=== PATIENT | male | born 1955 | race Caucasian/White ===

== ENCOUNTER 2020-09-05 10:51 | Inpatient (IN) | payer OTHER ==
[2020-09-05 11:26] LABS: #Basophils 0.1 thou/uL (0.0-0.2); #Eosinphils 0.6 thou/uL (0.0-0.7); #Lymphocytes 1.7 thou/uL (1.20-3.40); #Monocytes 0.8 thou/uL (0.11-0.59); #Neutrophils 5.3 thou/uL (1.40-6.50); %Basophils 0.9 % (0.0-1.0); %Eosinophils 7.4 % (0.0-10.0); %Monocytes 9.2 % (0.0-10.0); %Neutrophils 62.5 % (42.0-75.0); Hemoglobin 15.7 g/dL (14.0-18.0); Mean Corpuscular HGB CONC 34.6 g/dL (32.0-36.0); Mean Corpuscular Hemoglobin 34.1 pg (27.0-31.0); Mean Corpuscular Volume 98.7 fL (78.0-98.0); Mean Platelet Volume 7.5 fL (7.4-10.4); Platelet Count 168 thou/uL (130-400); Red Blood Cell (RBC) Count 4.59 mill/uL (4.70-6.10); White Blood Cell (WBC) Count 8.5 thou/uL (4.8-10.8)
--- NOTE | 2020-09-05 11:48 | RAD ---
EXAM: Chest PA and lateral: HISTORY: Dizziness rib position change, x4 to COMPARISON: None FINDINGS: Heart: Normal cardiac silhouette Aorta: Unremarkable Pulmonary vessels: Normal Costophrenic angles: Costophrenic angles are clear. Lungs: No consolidation or masses. Pneumothorax: No pneumothorax Osseous structures: No osseous abnormalities IMPRESSION: No acute cardiopulmonary process.
[2020-09-05 11:53] LABS: ALT (SGPT) 20 U/L (8-55); AST (SGOT) 21 U/L (5-34); Albumin 3.9 g/dL (3.4-4.8); Alkaline Phosphatase 76 U/L (40-110); Anion Gap 13 mmol/L (10-20); BUN (Urea Nitrogen) 16 mg/dL (8.4-25.7); Bilirubin, Total 0.6 mg/dL (0.2-1.2); Calc. Creatinine Clearance 0 mL/min (70-130); Calcium 9.3 mg/dL (7.8-10.44); Carbon Dioxide 23 mmol/L (23-31); Chloride 99 mmol/L (98-107); Estimated GFR-MDRD Greater than 90; Globulin 3.7 g/dL (2.4-3.5); Glucose 213 mg/dL (80-115); Potassium 4.5 mmol/L (3.5-5.1); Protein, Total 7.6 g/dL (5.8-8.1); Sodium 130 mmol/L (136-145)
[2020-09-05] MEDS ORDERED: Magnesium 2 GM/50 ML BAG (IN WATER) ONE (12:35)
[2020-09-05 13:02] LABS: INR-International Normal Ratio 1.1; PTT 24.2 sec (22.9-36.1); Prothrombin Time 14.3 sec (12.0-14.7)
[2020-09-05] MEDS ORDERED: niCARdipine 20MG In NaCl 20 MG/200 ML BAG ONE (13:24)
--- NOTE | 2020-09-05 13:57 | CT ---
CT OF THE BRAIN WITHOUT CONTRAST: Date: 09/05/2020 INDICATION: History of generalized weakness with multiple falls and dizziness. COMPARISON: None. FINDINGS: There are bilateral subdural hematomas overlying both cerebral convexities, left greater than right. The left measures 3.3 cm and the right measures 1.4 cm. There is yfvk-yv-apwpm midline shift of 8.5 mm. The basilar cisterns remain patent. No definite acute infarct is evident. Septum pellucidum and third ventricle are midline. There is suspected generalized cerebral and cerebellar atrophy. Mastoid air c ells are clear. There is mild mucosal thickening in the maxillary sinuses. No air fluid level is evid ent. IMPRESSION: Bilateral cerebral convexity subdural hematomas, left greater than right, with [id number]-[id number] midline shift of 8.5 mm. Findings called to Dr. Germain at 1303 hours on 09/05/2020. CODE CR. POS:
--- NOTE | 2020-09-05 13:59 | CT ---
CT CERVICAL SPINE WITHOUT CONTRAST: Date: 09/05/2020 INDICATION: History of fall with possible neck injury. COMPARISON: None. FINDINGS: There is some straightening of the normal cervical lordosis. Spinal alignment appears within normal l imits. There is advanced disc degenerative disease at C5-6 through C7-T1. Prominent facet osteoarthri tic change is seen on the left at C2-3 with ankylosis. No acute fracture or subluxation is evident. T here is a partial effusion in the left mastoid air cells. IMPRESSION: 1. No acute fracture or subluxation is evident. 2. Moderate to severe cervical spondylosis. POS: BH
[2020-09-05 14:01] LABS: Alcohol Less than 10 mg/dL (Less than 10); Magnesium 1.8 mg/dL (1.6-2.6); Phosphorus 3.4 mg/dL (2.3-4.7)
[2020-09-05] MEDS ORDERED: hydrALAZINE 20 MG/ML VIAL SLOW IVP PRN (14:48)
[2020-09-05] MEDS ORDERED: Dextrose 50% Abboject 50 ML SYRINGE SLOW IVP PRN ×2 (14:48→17:35)
[2020-09-05] MEDS ORDERED: Insulin Regular 300 UNITS/3 ML VIAL SC PRN (14:48)
[2020-09-05] MEDS ORDERED: Dextrose 5% in Water 1,000 ML IV PRN ×2 (14:48→17:35)
[2020-09-05] MEDS ORDERED: Ondansetron PF 4 MG/2 ML Vial IVP PRN (14:48)
[2020-09-05] MEDS ORDERED: Acetaminophen 325 MG TAB PO PRN (14:54)
--- NOTE | 2020-09-05 15:42 | CON ---
DATE OF CONSULTATION: Mr. Guillen is a 65-year-old man, who presented to [facility] this morning for evaluation of several falls over the last several days with significant balance issues including difficulty even sitting up on the bedside. CT scan performed in the emergency department reveals bilateral subacute subdural hematomas with mixed density blood including some very punctate areas of hyperdensity within the left subdural. There is nixq-hm-yfvpp midline shift of roughly 5 mm, but significant compression of the underlying parenchyma bilaterally. The left is much larger than the right, but both spanned nearly the entire cerebral convexity on both sides. He is not on any blood thinners and did have a significant fall the day before Halloween resulting in a small head laceration that they did not go get evaluated for. He does have a history of significant alcohol intake and was diagnosed with cirrhotic liver disease, which could explain why he has decreased clotting factors and may signal coagulopathy. At bedside, he is alert and oriented x4. He has excellent strength in bilateral upper and lower extremities, although has some discoordination particularly in his legs. He cannot sit upright. We did not test his gait as I do not think that is safe to do even in the hospital setting. Blood pressures at the moment are in the one teens to 120s systolic. Speech is uninhibited and fluid and he is appropriate the entire time during our conversation. Pupils are equal, round, and reactive to light. Extraocular movements are intact. I discussed with the patient and his at bedside that this represents a surgical problem, however, does not need to be done today. Trauma will admit this patient. We will make him n.p.o. overnight and plan for bilateral subdural evacuation via chanda holes tomorrow. I answered all questions. I have explained surgery in detail, anticipate him to do quite well. Job ID: [id number]
[2020-09-05 16:00] VITALS: BMI 32.4
--- NOTE | 2020-09-05 16:18 | HP ---
PRIMARY CARE PHYSICIAN: Kait Burroughs NP. REQUESTING ER PHYSICIAN: Dr. Germain. CONSULTS: Neurosurgery, Dr. Barrientos. CHIEF COMPLAINT: Multiple falls, alcohol abuse, general weakness, unsteady gait. HISTORY OF PRESENT ILLNESS: This is a 65-year-old gentleman with a past medical history of alcohol abuse, coronary artery disease, cirrhosis and type 2 diabetes. The patient was brought into the emergency room by his due to him not being able to ambulate, general weakness and dizziness. The patient's GCS is currently 15. The patient has had multiple falls within the last month. The states he fell approximately 6 times since . One of these episodes, he did have a loss of consciousness. They have recently moved to the [facility] and are living in a travel trailer, which has been requiring him to use three steps that is when he has fallen the majority of the time getting up in the travel trailer or coming down the steps. states that they are in the process of building a house. The patient last drank alcohol last night. The patient denies taking any anticoagulants. The patient was evaluated and found to have bilateral chronic and subacute subdural hemorrhages. Neurosurgery was consulted. The patient was hypertensive on arrival to the emergency room. The patient was placed on a Cardene drip, which improved the patient's blood pressure and is currently off Cardene at this time. The patient was also given thiamine, 2 g of magnesium and 500 mL normal saline bolus. REVIEW OF SYSTEMS: A 10-point review of systems is negative unless otherwise indicated in the above HPI. ALLERGIES: PENICILLIN. PAST MEDICAL HISTORY: Coronary artery disease, myocardial infarction, stents placed in May of 2019, hypothyroidism, cirrhosis, benign prostatic hypertrophy, type 2 diabetes, alcohol abuse. SURGICAL HISTORY: Hernia repair, cholecystectomy, appendectomy. CURRENT MEDICATIONS: 1. Glimepiride 4 mg twice a day before meals. 2. Bupropion 300 mg q.12 hours. 3. Aspirin 81 mg daily. 4. Chlordiazepoxide 25 mg. 5. Nitroglycerin sublingual p.r.n. 6. Flomax 0.4 mg at bedtime. 7. Spirolactone 25 mg q.a.m. 8. Levothyroxine 25 mcg daily. 9. Citalopram 20 mg once a day. 10. Furosemide 20 mg once a day. 11. Ranolazine 500 mg b.i.d. before meals. PHYSICAL EXAMINATION: VITAL SIGNS: Blood pressure 132/91, pulse 78, respirations 19, SpO2 97% on room air, temperature 98.4. GENERAL: Middle-age male, awake, alert, in no distress. HEENT: Head is atraumatic and normocephalic. Pupils are equal bilateral. Normal ear and nose exam, mucous membranes moist. NECK: No cervical spine tenderness, normal range of motion of neck. Trachea is midline. RESPIRATORY: Equal chest rise and fall, bilateral breath sounds clear, no wheezing, rales, or rhonchi. CARDIOVASCULAR: Regular rate, regular rhythm. No pedal edema. ABDOMEN: Obese, soft, nontender. PELVIS: Stable. No tenderness. EXTREMITIES: Moves all extremities, hoof and shoe inspector strength equal in all extremities, slightly weaker right hoof and shoe inspector, right upper. Distal pulses intact. Normal sensation in all extremities. Multiple abrasions to bilateral knees. Old healing scab to the left knee. NEUROLOGIC: Speech is normal, the patient unable to the stand up on his own. LABORATORY DATA: WBC 8.5, RBC 4.59, hemoglobin 15.7, hematocrit 45.5, platelets 168. Sodium 130, potassium 4.5, chloride 99, carbon dioxide 23, BUN 16, creatinine 0.78, estimated GFR greater than 90, glucose 213, calcium 9.3, phosphorus 3.4, magnesium 1.8, AST 21, ALT 20, alkaline phosphatase 76, ammonia 36. Troponin I less than 0.010, albumin 3.9. Plasma alcohol less than 10. PT 14.3, INR 1.1, APTT 24.2. DIAGNOSTIC DATA: Chest x-ray, impression, no acute cardiopulmonary process. Cervical spine CT, impression, no acute fracture, subluxation. Moderate to severe cervical spondylosis. Brain CT, impression; bilateral cerebral convexity subdural hematomas, left greater than right, [id number]-qg-rrxjh midline shift 8.5 mm, subacute on chronic. ASSESSMENT: 1. Multiple falls. 2. Alcohol abuse. 3. Subacute on chronic bilateral subdural hematoma. 4. Hyponatremia. 5. History of coronary artery disease, hypothyroidism, cirrhosis, type 2 diabetes, and benign prostatic hypertrophy. PLAN: Admit to the critical care unit. Q.2 hours neuro checks. Regular diet as tolerated. N.p.o. after midnight with maintenance IV fluids. Serax, thiamine, folic acid, and multivitamins. q.6 hours Accu-Cheks with a mild sliding scale. Neurosurgery plans to take the patient to the OR tomorrow for bilateral chanda holes. We will have PT and OT evaluate and treat postop. We will place a rehab screen as the patient will likely need additional physical and occupational therapy. The patient was seen by Dr. Doyle in the emergency room. The plan was discussed with the patient and spouse who agrees. Job ID: [id number]
[2020-09-05] MEDS: Oxazepam 10 MG CAP PO SCH ×2 (16:29→23:08)
[2020-09-05 17:16] LABS: Bilirubin Negative (Negative); Blood, Urine Negative (Negative); Clarity Clear (Clear); Glucose, Urine (Dipstick) >=1000 mg/dL (Negative); Ketone, Urine Negative (Negative); Leukocyte Negative Leu/uL (Negative); Nitrite Negative (Negative); Protein, Urine (Dipstick) 20 mg/dL (Neg-Trace); Specific Gravity, Urine 1.011 (1.002-1.036); Urobilinogen Normal mg/dL (Less than 2)
[2020-09-05 17:35] LABS: Amphetamine Not Detected (NotDetected); Barbiturates Screen Not Detected (NotDetected); Benzodiazepine Screen Not Detected (NotDetected); Cocaine Metabolite Screen Not Detected (NotDetected); Medtox Control Line Valid? VALID (VALID); Medtox Reader # READER 4; Methadone Not Detected (NotDetected); Methamphetamine Not Detected (NotDetected); Opiate Screen Not Detected (NotDetected); Oxycodone Screen Not Detected (NotDetected); Phencyclidine (PCP) Not Detected (NotDetected); THC/Cannabinoid Screen Not Detected (NotDetected); Tricyclic Screen Not Detected (NotDetected)
[2020-09-05] MEDS: Famotidine/PF 20 mg/2ml Vial SLOW IVP SCH (21:06)
[2020-09-05] MEDS: Senokot S 8.6-50 MG TAB PO SCH (21:06)
[2020-09-05] MEDS: Tamsulosin HCl 0.4 MG CAP PO SCH (21:07)
[2020-09-05] MEDS: Sodium Chloride 0.9% 1,000 ML IV SCH (23:08)
[2020-09-05] MEDS ORDERED: Labetalol HCl 100 MG/20 ML VIAL ONE (23:37)
[2020-09-05] MEDS ORDERED: Labetalol HCl 100 MG/20 ML VIAL SLOW IVP PRN (23:42)
[2020-09-05 23:46] LABS: SARS-CoV-2 MS2 Positive; SARS-CoV-2 N Gene Negative; SARS-CoV-2 S Gene Negative; SARS-CoV-2 by NAA Not Detected (NotDetected); SARS-CoV-2 orf1ab Negative
[2020-09-06] MEDS ORDERED: niCARdipine 50 MG in Sodium Chloride 0.9% 250 ML 230 ML IV SCH (00:45)
[2020-09-06 03:51] LABS: #Basophils 0.1 thou/uL (0.0-0.2); #Eosinphils 0.2 thou/uL (0.0-0.7); #Lymphocytes 1.1 thou/uL (1.20-3.40); #Monocytes 0.8 thou/uL (0.11-0.59); #Neutrophils 9.1 thou/uL (1.40-6.50); %Basophils 0.7 % (0.0-1.0); %Eosinophils 1.6 % (0.0-10.0); %Lymphocytes 9.9 % (21.0-51.0); %Neutrophils 80.9 % (42.0-75.0); Hemoglobin 16.4 g/dL (14.0-18.0); Mean Corpuscular HGB CONC 33.2 g/dL (32.0-36.0); Mean Corpuscular Hemoglobin 32.9 pg (27.0-31.0); Mean Corpuscular Volume 99.2 fL (78.0-98.0); Mean Platelet Volume 7.2 fL (7.4-10.4); Platelet Count 155 thou/uL (130-400); RBC Distribution Width 12.1 % (11.5-14.5); White Blood Cell (WBC) Count 11.3 thou/uL (4.8-10.8)
[2020-09-06 04:00] LABS: PTT 24.7 sec (22.9-36.1); Prothrombin Time 13.6 sec (12.0-14.7)
[2020-09-06 04:18] LABS: Anion Gap 14 mmol/L (10-20); BUN (Urea Nitrogen) 10 mg/dL (8.4-25.7); Calc. Creatinine Clearance 146 mL/min (70-130); Calcium 8.9 mg/dL (7.8-10.44); Carbon Dioxide 21 mmol/L (23-31); Chloride 99 mmol/L (98-107); Estimated GFR-MDRD Greater than 90; Glucose 258 mg/dL (80-115); Magnesium 1.8 mg/dL (1.6-2.6); Potassium 4.2 mmol/L (3.5-5.1); Sodium 130 mmol/L (136-145)
[2020-09-06 04:23] LABS: Phosphorus 2.7 mg/dL (2.3-4.7)
[2020-09-06] MEDS: Levothyroxine Sodium 25 MCG TAB PO SCH (05:43)
[2020-09-06] MEDS: Insulin Regular 300 UNITS/3 ML VIAL SC PRN ×3 (06:21→18:09)
[2020-09-06] MEDS: Oxazepam 10 MG CAP PO SCH ×3 (06:30→22:18)
--- NOTE | 2020-09-06 07:30 | PRG ---
DATE OF SERVICE: 09/06/2020 SUBJECTIVE: Mr. Guillen is a 65-year-old male referred for episodic confusion and unsteadiness of gait. He had a CT examination performed in the ER, which revealed bilateral large mixed density subdural hematomas. He was admitted to the ICU for observation in anticipation of drainage this morning. I met with him in the ICU, where he is awake, alert, oriented, and grossly intact neurologically. Per the nurse, he does have occasional bouts of confusion. I did not walk him, although reportedly he has a slightly unsteady gait. I talked with him and planned to talk to his this morning, wherein relayed our surgical plan, which will be a bilateral chanda hole drainage of subdural hematomas. I discussed risks, benefits, and alternatives of the procedure. He asked questions, I believe he understands and informed consent was provided. Job ID: [id number]
[2020-09-06] MEDS ORDERED: chlordiazePOXIDE HCl 25 MG CAP PO SCH (08:00)
[2020-09-06] MEDS ORDERED: Meperidine HCl/PF 25 MG/ML VIAL SLOW IVP PRN (08:01)
[2020-09-06] MEDS ORDERED: Promethazine HCl 25 MG/ML VIAL IM PRN (08:01)
[2020-09-06] MEDS ORDERED: Promethazine HCl 25 MG/ML VIAL SLOW IVP PRN (08:01)
[2020-09-06] MEDS ORDERED: Ondansetron HCl/PF 4 MG/2 ML Vial IVP PRN (08:01)
[2020-09-06] MEDS ORDERED: Lidocaine 2% Jelly 5 ML TUBE ONE (08:42)
[2020-09-06] MEDS ORDERED: Fentanyl 100 MCG/2 ML VIAL ONE (08:42)
[2020-09-06] MEDS ORDERED: Lidocaine 0.5%/Epinephrine 1:200,000 50 ml Vial ONE ×3 (08:43→09:35)
[2020-09-06] MEDS ORDERED: EPINEPHrine 1 MG/ML AMP ONE (08:45)
[2020-09-06] MEDS ORDERED: Bupivacaine PF 0.5% 30 ML VIAL ONE (08:45)
[2020-09-06] MEDS: Sodium Chloride 0.9% 1,000 ML IV SCH ×3 (08:57→17:09)
[2020-09-06] MEDS ORDERED: Dexamethasone 20 MG/5 ML VIAL ONE (08:58)
[2020-09-06] MEDS ORDERED: PHENYLEPHRINE-NS 100 MCG/ML 10 ML SYRINGE ONE (08:58)
[2020-09-06] MEDS ORDERED: Rocuronium Bromide 10 MG/ML (10ML VIAL) ONE (08:58)
[2020-09-06] MEDS ORDERED: ePHEDrine 50 MG/ML VIAL ONE (08:58)
[2020-09-06] MEDS ORDERED: PROPOFOL 200 MG/20 ML VIAL ONE (08:58)
[2020-09-06] MEDS ORDERED: Lidocaine 1% PF 5 ML VIAL ONE (08:58)
[2020-09-06] MEDS ORDERED: Ondansetron PF 4 MG/2 ML Vial ONE (08:58)
[2020-09-06] MEDS: Escitalopram Oxalate 20 mg Tablet PO SCH (08:59)
[2020-09-06] MEDS: Famotidine/PF 20 mg/2ml Vial SLOW IVP SCH ×2 (08:59→18:50)
[2020-09-06] MEDS: Bupropion 150 MG SR TAB PO SCH (08:59)
[2020-09-06] MEDS: Folic Acid 1 MG TAB PO SCH (08:59)
[2020-09-06] MEDS: Multivitamin W/ Minerals 1 TAB PO SCH (09:00)
[2020-09-06] MEDS: Polyethylene Glycol 3350 17 GM Packet PO SCH (09:00)
[2020-09-06] MEDS ORDERED: Prevnar 13-Val Conj/PF 0.5 ML SYRINGE IM ONE (09:00)
[2020-09-06] MEDS: Senokot S 8.6-50 MG TAB PO SCH ×2 (09:01→20:57)
[2020-09-06] MEDS: Spironolactone 25 MG TAB PO SCH (09:01)
[2020-09-06] MEDS ORDERED: Clindamycin/D5W 900 mg/50 ml Premix Bag ONE (09:23)
[2020-09-06] MEDS ORDERED: Levofloxacin 500 mg/D5W 100 ml Premix Bag ONE (09:24)
[2020-09-06] MEDS ORDERED: Bacitracin Zinc Ointment 30 gm TUBE ONE (10:13)
[2020-09-06] MEDS ORDERED: diphenhydrAMINE 50 MG/ML VIAL IVP PRN (10:30)
--- NOTE | 2020-09-06 11:05 | OP ---
DATE OF PROCEDURE: 09/05/2020 LOTUS NOTES ADMINISTRATOR: Galen Liao PA-C. INDICATION: Prevent neurologic decline. DIAGNOSIS: Subacute on chronic bilateral subdural hematomas with mass effect. PROCEDURES PERFORMED: Bilateral frontal chanda hole placement with evacuation of hematoma. ANESTHESIA: General. DESCRIPTION OF PROCEDURE: The patient was brought into the operating room and placed under general anesthesia. He was placed on table in a supine position. Two small linear incisions were planned, one on the left and one on the right along the posterior aspect of the frontal region. After prepping and draping, the area was infiltrated with lidocaine with epinephrine. Following an appropriate operative pause, the incisions were created. Self-retaining retractors were placed. A single chanda hole was placed within each skin defect. The underlying dura was identified and incised in a cruciate fashion. Immediately under both holes, there was immediate egress of blood product subacute in nature and chronic in nature. There was large volume of blood product consistent with what we identified on the CT scan. A few L of irrigant were used to irrigate the area until the blood cleared. Two red rubber tubes were placed, one on each side through a separate puncture site and placed within the subdural compartment. The wound was irrigated again. Hemostasis was maintained throughout. The incisions were closed in anatomic layers, and a pressure dressing was applied on each side. There were no known procedural complications. Job ID: [id number]
[2020-09-06] MEDS: Thiamine 100 MG TAB PO SCH (11:06)
[2020-09-06] MEDS: Morphine 2 MG/ML VIAL SLOW IVP PRN ×3 (13:51→23:03)
[2020-09-06] MEDS: Clindamycin/D5W 900 MG in Premix Bag 1 BAG IVPB SCH ×2 (13:52→21:15)
--- NOTE | 2020-09-06 16:18 | PRG ---
DATE OF SERVICE: 09/06/2020 SUBJECTIVE: Mr. Guillen is a 65-year-old man with history of chronic alcoholism, who has had multiple ground level falls recently. He was admitted yesterday with bilateral convexity subdural hematomas of chronic and subacute nature. He underwent an uneventful bilateral chanda hole evacuation of the subdural hematomas. I am seeing him at bedside in the intensive care unit. His is present during this visit. The patient is awake and alert. He moves all extremities and follows commands. His Silverio Coma Scale is 15. He denies any dizziness, photophobia, or headaches. OBJECTIVE: VITAL SIGNS: Include blood pressure 127/71, pulse 78, respiratory rate 16, temperature is 97.7 degrees Fahrenheit, oxygen saturation is 97% on 2 L by nasal cannula oxygen. HEENT: Reveals bilateral subdural drains, which are returning a scant amount of serosanguineous fluid. Pupils are equally round and reactive to light and accommodation. HEART: Reveals regular rate and rhythm. LUNGS: Clear to auscultation bilaterally. Breathing, regular and nonlabored. ABDOMEN: Soft, nontender, nondistended. EXTREMITIES: Reveal 2+ radial and pedal pulses bilaterally. No ankle edema is present. MUSCULOSKELETAL: Reveals 5/5 muscle strength in bilateral upper and lower extremities. He has no motor or sensory deficits identified. LABORATORY FINDINGS: Today include a CBC with 11,300 white blood cells, hemoglobin and hematocrit 16.4 and 49.6 respectively, and platelet count is 155,000. Metabolic profile; sodium 130, potassium 4.2, chloride is 99, bicarb is 21, BUN is 10, creatinine is 0.70, glucose is 258, magnesium 1.8, and phosphorus is 2.7. IMPRESSION: 1. Status post bilateral chanda hole evacuation of bilateral subdural hematomas. The patient is neurologically normal. 2. Acute hyponatremia, likely secondary to chronic alcoholism and concomitant pseudohyponatremia secondary to acute hyperglycemia. 3. Acute hypomagnesemia. 4. Acute hypophosphatemia. PLAN: 1. Tighter glucose control on insulin. 2. Correct abnormal electrolytes. 3. Initiate physical and occupational therapy. 4. We will ask Case Management to initiate discharge planning for possible inpatient rehabilitation post-discharge. Above findings and plan discussed with the patient and his at bedside, who indicated understanding of information provided. I have answered their questions. Job ID: [id number]
--- NOTE | 2020-09-06 17:09 | PRG ---
DATE OF SERVICE: 09/06/2020 SUBJECTIVE: The patient was seen in the critical care unit after returning from the operating room after bilateral frontal bur holes with evacuation of hematoma by Dr. Barrientos. The patient is currently awake, alert, in no distress. The patient voices no complaints or concerns. The patient reports feeling better than he did yesterday. The patient is not requiring any antihypertensive at this time. The patient's pain is well controlled. OBJECTIVE: VITAL SIGNS: Blood pressure 129/80, respirations 15, heart rate 82, SpO2 97% on room air, temperature 97.7. GENERAL: A well-appearing middle aged male, awake, alert, in no distress. HEENT: Bilateral frontal chanda holes with drains in place. Mucous membranes moist. RESPIRATORY: Good inspiratory and expiratory effort, no respiratory distress. CARDIAC: Regular rate, regular rhythm. EXTREMITIES: Moves all extremities, neurovascularly intact x4, strength 5/5 in all extremities. NEUROLOGIC: GCS 15. No deficits. LABORATORY DATA: WBC 11.3, RBC 5.00, hematocrit 49.6, platelets 155. Sodium 130, potassium 4.2, chloride 99, BUN 10, creatinine 0.70. Estimated GFR greater than 90, glucose 258, calcium 8.9, phosphorus 2.7, magnesium 1.8. ASSESSMENT: 1. Status post multiple falls. 2. Alcohol abuse. 3. Zoblp-rv-stmkxcx bilateral subdural hematomas. 4. Hyponatremia. 5. Status post bilateral frontal chanda holes with drains and evacuation of hematoma. 6. History of coronary artery disease, hypothyroidism, cirrhosis, type 2 diabetes, alcohol abuse, and benign prostatic hypertrophy. PLAN: Pain control and supportive care. Continue drains per Neurosurgery. We will increase the patient's sliding scale as his blood sugars have been elevated. Continue to monitor urinary output and blood pressure. Repeat labs in the morning. Job ID: [id number]
[2020-09-06] MEDS: Insulin Glargine 10 UNITS in Pre-Filled Syringe SC SCH (20:56)
[2020-09-06] MEDS: Tamsulosin HCl 0.4 MG CAP PO SCH (20:57)
[2020-09-07 03:59] LABS: #Eosinphils 0.1 thou/uL (0.0-0.7); #Lymphocytes 1.9 thou/uL (1.20-3.40); #Monocytes 1.3 thou/uL (0.11-0.59); %Basophils 0.2 % (0.0-1.0); %Eosinophils 0.8 % (0.0-10.0); %Lymphocytes 15.1 % (21.0-51.0); %Monocytes 10.8 % (0.0-10.0); %Neutrophils 73.1 % (42.0-75.0); Hemoglobin 15.1 g/dL (14.0-18.0); Mean Corpuscular HGB CONC 33.3 g/dL (32.0-36.0); Mean Corpuscular Hemoglobin 33.9 pg (27.0-31.0); Mean Platelet Volume 7.7 fL (7.4-10.4); Platelet Count 165 thou/uL (130-400); RBC Distribution Width 12.3 % (11.5-14.5); Red Blood Cell (RBC) Count 4.46 mill/uL (4.70-6.10); White Blood Cell (WBC) Count 12.3 thou/uL (4.8-10.8)
[2020-09-07 04:28] LABS: Anion Gap 12 mmol/L (10-20); BUN (Urea Nitrogen) 12 mg/dL (8.4-25.7); Calc. Creatinine Clearance 129 mL/min (70-130); Calcium 8.7 mg/dL (7.8-10.44); Carbon Dioxide 22 mmol/L (23-31); Chloride 103 mmol/L (98-107); Estimated GFR-MDRD Greater than 90; Glucose 285 mg/dL (80-115); Phosphorus 3.6 mg/dL (2.3-4.7); Potassium 4.2 mmol/L (3.5-5.1); Sodium 133 mmol/L (136-145)
[2020-09-07] MEDS: Morphine 2 MG/ML VIAL SLOW IVP PRN (04:53)
[2020-09-07] MEDS: Clindamycin/D5W 900 MG in Premix Bag 1 BAG IVPB SCH ×3 (04:54→21:37)
[2020-09-07] MEDS: Levothyroxine Sodium 25 MCG TAB PO SCH (04:54)
[2020-09-07] MEDS: Insulin Regular 300 UNITS/3 ML VIAL SC PRN ×4 (05:05→20:55)
[2020-09-07] MEDS: Bupropion 150 MG SR TAB PO SCH (07:58)
[2020-09-07] MEDS: Escitalopram Oxalate 20 mg Tablet PO SCH (08:00)
[2020-09-07] MEDS: Folic Acid 1 MG TAB PO SCH (08:00)
[2020-09-07] MEDS: Senokot S 8.6-50 MG TAB PO SCH ×2 (08:00→20:55)
[2020-09-07] MEDS: Thiamine 100 MG TAB PO SCH (08:01)
[2020-09-07] MEDS: Polyethylene Glycol 3350 17 GM Packet PO SCH (08:01)
[2020-09-07] MEDS: Multivitamin W/ Minerals 1 TAB PO SCH (08:01)
[2020-09-07] MEDS: Oxazepam 10 MG CAP PO SCH ×3 (08:01→22:59)
[2020-09-07] MEDS: Famotidine/PF 20 mg/2ml Vial SLOW IVP SCH (08:01)
[2020-09-07] MEDS ORDERED: traMADol HCl 50 MG TAB PO PRN (08:22)
[2020-09-07] MEDS: Spironolactone 25 MG TAB PO SCH (09:15)
[2020-09-07] MEDS: traMADol HCl 50 MG TAB PO SCH ×3 (11:29→22:59)
[2020-09-07] MEDS: Acetaminophen 500 MG TAB PO SCH ×3 (11:30→23:00)
[2020-09-07] MEDS: Sodium Chloride 0.9% 1,000 ML IV SCH (13:16)
--- NOTE | 2020-09-07 14:06 | PRG ---
DATE OF SERVICE: 09/07/2020 Mr. Guillen is now postop day #1 following bilateral subdural evacuation via chanda holes. He is in the ICU, sitting at the bedside, eating breakfast comfortably. His central ataxia is dramatically improved. He also states he feels overall just much better. Drainage the first 8 hours yesterday evening was 90 in the left and 25 in the right. Drainage overnight 110 in the left and 80 on the right. These were emptied at 6 a.m. this morning, he already has what looks like probably another 25 in the right drain. All this is frankly bloody. I will remove these now, but from my standpoint, the patient is safe to go to the stroke floor. Incisions are dry, well approximated. Systolic pressure is well appearing in the 140s consistently, although early this morning did bump up to 170, but this responded well to p.r.n. medications. I will probably leave the drains in until lunchtime today. Re-evaluate whether he is in the ICU or stroke unit. Once he is done with breakfast it is okay from our perspective that he get up and ambulate this morning. Would likely recommend PT evaluation to determine how safe he is, whether he needs outpatient rehab or could potentially go home, either which is agreeable with Neurosurgery. I will plan to touch base later. Job ID: [id number]
[2020-09-07] MEDS: Insulin Glargine 10 UNITS in Pre-Filled Syringe SC SCH (20:54)
[2020-09-07] MEDS: Tamsulosin HCl 0.4 MG CAP PO SCH (20:55)
[2020-09-08] MEDS: Sodium Chloride 0.9% 1,000 ML IV SCH (02:09)
[2020-09-08] MEDS: Acetaminophen 500 MG TAB PO SCH ×2 (05:16→11:34)
[2020-09-08] MEDS: Clindamycin/D5W 900 MG in Premix Bag 1 BAG IVPB SCH ×2 (05:16→11:37)
[2020-09-08] MEDS: Levothyroxine Sodium 25 MCG TAB PO SCH (05:16)
[2020-09-08] MEDS: traMADol HCl 50 MG TAB PO SCH ×2 (05:35→11:36)
[2020-09-08] MEDS: Oxazepam 10 MG CAP PO SCH (05:35)
[2020-09-08] MEDS: Insulin Regular 300 UNITS/3 ML VIAL SC PRN ×2 (06:02→11:37)
--- NOTE | 2020-09-08 07:45 | PRG ---
DATE OF SERVICE: 09/08/2020 SUBJECTIVE: I went to see, Mr. Guillen this morning. He was up walking the hallways without complaints. His drains have been removed. His incisions are intact. Neurologically, he is at baseline and normal. He is eager to go home and I believe he is safe to do so. We will arrange followup in about two weeks for staple removal. Job ID: [id number]
[2020-09-08] MEDS: Bupropion 150 MG SR TAB PO SCH (08:17)
[2020-09-08] MEDS: Polyethylene Glycol 3350 17 GM Packet PO SCH (08:17)
[2020-09-08] MEDS: Spironolactone 25 MG TAB PO SCH (08:18)
[2020-09-08] MEDS: Thiamine 100 MG TAB PO SCH (08:18)
[2020-09-08] MEDS: Senokot S 8.6-50 MG TAB PO SCH (08:18)
[2020-09-08] MEDS: Folic Acid 1 MG TAB PO SCH (08:18)
[2020-09-08] MEDS: Multivitamin W/ Minerals 1 TAB PO SCH (08:18)
[2020-09-08] MEDS: Escitalopram Oxalate 20 mg Tablet PO SCH (08:18)
[2020-09-08] MEDS ORDERED: Insulin Glargine 10 UNITS in Pre-Filled Syringe SC SCH (09:00)
[2020-09-08 11:32] VITALS: BP 150/91; TEMP 98.2
[2020-09-08] MEDS ORDERED: Saccharomyces boulardii 250 MG CAP PO SCH (21:00)
--- NOTE | 2020-09-08 23:33 | DIS ---
DATE OF ADMISSION: 09/05/2020 DATE OF DISCHARGE: 09/08/2020 DISCHARGING PHYSICIAN: Sotero Doyle DO. CONSULTING PHYSICIAN: Dr. John Barrientos with Neurosurgery. ADMITTING DIAGNOSES: 1. Fall with bilateral subdural hematoma. 2. Hyponatremia. 3. Alcohol abuse. 4. History of coronary artery disease. 5. Hypothyroidism. 6. Cirrhosis. 7. Type 2 diabetes. 8. Benign prostatic hypertrophy. DISCHARGE DIAGNOSES: 1. Multiple falls. 2. Alcohol abuse. 3. Acute on chronic bilateral subdural hematoma status post drain placement and removal. 4. History of hyponatremia. 5. History of coronary artery disease. 6. Hypothyroidism. 7. Cirrhosis. 8. Type 2 diabetes. 9. Benign prostatic hypertrophy. PROCEDURES DURING HOSPITALIZATION: Had bilateral subdural drains placed on 09/06/2020 with a bur hole and evacuation of subdural hematomas. HOSPITAL COURSE: Patient was admitted through the emergency department status post fall. Neurosurgery was consulted and admitted to the CCU. Bur hole placement as noted above. Tolerated procedure well, was transferred to the nuñez. GCS of 15. Patient was ambulatory. No acute distress. Tolerating a diet. Passing stool and urinating. Patient states that he feels better and his pain is under control. He has no nausea, no vomiting, and is wanting to go home. He was offered rehab multiple times which he has denied. His were drains removed on the date of discharge. He was cleared by Neurosurgery to follow up with them. Patient was given opportunity to ask all questions, also to give an opportunity to stay an additional night to monitor as his drains were removed he denies, states that he has [facility] that he needs to see this evening and his is going to pick him up. Patient was encouraged to reduce alcohol consumption. He lives in a travel trailer. He states that is why he has been falling as the steps are uneasy getting up. He has already talked to his son and they have a plan for this weekend to place a ramp into the travel trailer, which showed a cyst. Patient also has Librium that he can use to detox off alcohol. He is dry for the last 3 days here. He is maintained on Serax. Patient's home medications at discharge will be; 1. Tylenol 1000 mg every 6 as needed. 2. Bupropion 300 mg daily. 3. Lexapro 20 mg daily. 4. Folic acid 1 mg daily. 5. Synthroid 25 mcg daily. 6. Zofran 4 mg every 6 hours as needed. 7. MiraLAX as needed. 8. Spironolactone 25 mg daily. 9. Flomax 0.4 mg nightly. 10. Tramadol 50 mg every 6 as needed. 11. Nitroglycerin as needed. 12. Librium 25 mg b.i.d. as needed. 13. Glimepiride 4 mg b.i.d. Follow up will be with Neurosurgery, Dr. Barrientos in 10 days to 14 days to remove the trisha and repeat exam. [facility] P[facility] to manage diabetes and glucose checks. Trauma Service only as needed. DISCHARGE PLAN: Home. DIET: Regular. Answered all questions of the patient at the bedside. Prescriptions were left in the chart. Coordinated with bedside RN. Again, patient insisted on discharge today as he needs to go see [facility]. PHYSICAL EXAMINATION: VITAL SIGNS: On the day of discharge vital signs; temperature is 98.0, blood pressure 141/92, heart rate is 67, breathing 16 times per minute, 95% on room air. GENERAL: A 65-year-old male, in no acute distress. Ambulatory. HEENT: Has bilateral bur hole placements with trisha in place. States he has no headache. Trachea is midline. Pupils are equal and reactive. RESPIRATORY: Equal rise and fall. Bilateral breath sounds. Clear to auscultation upper lower bilaterally. CARDIOVASCULAR: Regular rate and rhythm. ABDOMEN: Soft and nontender. PELVIS: Stable. MUSCULOSKELETAL: Moves extremities well. No edema. NEUROLOGIC: Alert and oriented to person, place, time, and event. GCS is 15. PSYCH: Normal mood and affect. SKIN: Warm and dry. LABORATORY DATA: Chemistry; only thing to review is glucose 195. TIME SPENT: Greater than 30 minutes was taken in discharge planning of this patient. Job ID: [id number]
== END 2020-09-08 13:30 | disposition home or self-care (01) | DRG 26 ==
LOC: ERS 10:51 → CCU 13:46 → SURG A 09-07 12:53
PROVIDERS: ADMIT Surgery; ATTEND Surgery
PROC: 009430Z Drainage of Intracranial Subdural Space with Drainage Device, Percutaneous Approach (ICD-10-PCS; principal; 2020-09-05)
DX: S06.5X9A Traumatic subdural hemorrhage with loss of consciousness of unspecified duration, initial encounter (principal); E87.1 Hypo-osmolality and hyponatremia; I10 Essential (primary) hypertension; E11.9 Type 2 diabetes mellitus without complications; E03.9 Hypothyroidism, unspecified; N40.0 Benign prostatic hyperplasia without lower urinary tract symptoms; F32.9 Major depressive disorder, single episode, unspecified; R40.2413 Glasgow coma scale score 13-15, at hospital admission; I25.10 Atherosclerotic heart disease of native coronary artery without angina pectoris; Z20.828 Contact with and (suspected) exposure to other viral communicable diseases; W10.9XXA Fall (on) (from) unspecified stairs and steps, initial encounter; F10.10 Alcohol abuse, uncomplicated; E83.42 Hypomagnesemia; I95.9 Hypotension, unspecified; K74.60 Unspecified cirrhosis of liver; R29.6 Repeated falls; E83.39 Other disorders of phosphorus metabolism; Y90.0 Blood alcohol level of less than 20 mg/100 ml; I25.2 Old myocardial infarction; Z95.5 Presence of coronary angioplasty implant and graft; Z88.0 Allergy status to penicillin; Z90.49 Acquired absence of other specified parts of digestive tract; Z79.82 Long term (current) use of aspirin; Z79.899 Other long term (current) drug therapy
CPT/HCPCS: 36415; 36416; 70450; 71046; 72125; 80048; 80053; 80306; 80307; 81003; 82140; 82550; 83735; 84100; 84484; 85025; 85610; 85730; 86850; 86900; 86901; 87635; 93005; 96365; 96366; 96367; 96375; J0171; J0360; J1100; J1815; J1956; J2001; J2270; J2405; J2704; J3010; J3411; J3475; J3490; J7050; S0020; S0028; U0003

== ENCOUNTER 2020-10-13 09:40 | Outpatient (CLI) | payer OTHER ==
--- NOTE | 2020-10-13 10:05 | CT ---
CT HEAD WITHOUT CONTRAST: Date: 10/13/2020 INDICATION: Follow-up subdural hematoma. COMPARISON: CT head dated 09/05/2020. FINDINGS: Bilateral bur holes are now seen in both frontal bones since prior study. There is persistent left subdural hematoma which is predominantly hypodense indicating chronic subdur al hematoma. This measures a maximum of approximately 1.9 cm along the upper left frontal lobe convex ity. There is slight midline shift to the right measured at 4.0 mm at the septum pellucidum. There is small residual right subdural hematoma along the upper right parietal lobe measuring 1.0 cm. This is hypodense. No acute hemorrhage identified. Ventricle size remains within normal range. No ev idence of infarct or parenchymal hemorrhage. IMPRESSION: Persistent bilateral subdural hematomas which appear chronic, larger on the left. Slight midline shif t from left to right. POS: AGW
== END 2020-10-13 09:41 | disposition home or self-care (01) ==
LOC: TBSIIMAG 09:40
PROVIDERS: ATTEND Neurological Surgery
DX: I62.03 Nontraumatic chronic subdural hemorrhage (principal)
CPT/HCPCS: 70450

== ENCOUNTER 2020-11-30 10:19 | Outpatient (CLI) | payer OTHER ==
--- NOTE | 2020-11-30 11:05 | CT ---
Head CT without contrast 11/30/2020: COMPARISON: 10/13/2020 HISTORY: Reevaluate subdural hematoma TECHNIQUE: Axial CT imaging at 5 mm intervals from vertex through skull base without contrast FINDINGS: There is mild mucosal thickening involving the bilateral frontal sinuses, anterior ethmoid air cells, and the alveolar recess of bilateral maxillary sinuses. Bilateral chanda holes are noted near the vertex as on the prior examination. No acute osseous abnormality is noted. On the 10/13/2020 examination there were bilateral subdural hematomas, left larger than right. On tod ay's examination there is a subdural hematoma of mixed density, measuring up to 2.2 cm in greatest transverse dimension on the left with areas of hyperdensity consistent with acute hemorrhage along th e posterior inferior and anterior aspect. When compared to the 10/13/2020 examination the degree of acute hemorrhage appears to have slightly increased in volume. The subdural hematoma seen on the prio r examination on the right has essentially completely resolved. There is left to right midline shift associated with the acute on chronic left subdural hematoma elvira uring approximately 7 mm at the axial level of the septum pellucidum, slightly worsened when compared to the 10/13/2020 exam. IMPRESSION: Slight interval increase in acute component of the acute on chronic left subdural hematom a. Minimal interval increase in ftyj-lv-ieayi midline shift. Interval resolution of right subdural hematoma. Results discussed with Dr. John Barrientos at 11:00 AM 11/30/2020
== END 2020-11-30 10:20 | disposition home or self-care (01) ==
LOC: TBSIIMAG 10:19
PROVIDERS: ATTEND Neurological Surgery
DX: I62.03 Nontraumatic chronic subdural hemorrhage (principal)
CPT/HCPCS: 70450

== ENCOUNTER 2020-12-20 12:45 | Outpatient (CLI) | payer OTHER ==
--- NOTE | 2020-12-20 13:07 | CT ---
Exam: Head CT without contrast HISTORY: Follow-up subdural hematoma COMPARISON: 11/30/2020 FINDINGS: Hemorrhage: Redemonstration of a left frontoparietal extra-axial hematoma near the vertex, measuring 1.9 x 7.9 cm. There continues to be mixed attenuation containing components of acute and subacute hemorrhage. There is persistent mass effect upon the left cerebrum. There is stable sulcal effacement . Brain parenchyma: Cortical rowland-white matter differentiation is preserved. Improved but persistent le ft right subfalcine herniation at the level septum pellucidum, currently measuring 0.4 cm. Basilar cisterns are patent. Ventricular system: Ventricles and sulci are patent and symmetric. Calvarium: Stable borehole defects. Sinuses and mastoid air cells: Mild mucosal thickening of the paranasal sinuses. Adequate mastoid air cell aeration IMPRESSION: 1. Essentially stable left sided subdural hematoma. There is evidence of mixed attenuation suggesting acute/subacute component. No appreciable change in size. Stable mass effect upon the left cerebrum. 2. Improved but persistent left or right subfalcine herniation
== END 2020-12-20 12:46 | disposition home or self-care (01) ==
LOC: TBSIIMAG 12:45
PROVIDERS: ATTEND Neurological Surgery
DX: I62.03 Nontraumatic chronic subdural hemorrhage (principal)
CPT/HCPCS: 70450

== ENCOUNTER 2020-12-28 09:36 | Outpatient (CLI) | payer OTHER | END 2020-12-28 09:37 | disposition home or self-care (01) | LOC: SCSMRI 09:36 | PROVIDERS: ATTEND Neurological Surgery | DX: G95.20 Unspecified cord compression (principal); R29.6 Repeated falls; M50.30 Other cervical disc degeneration, unspecified cervical region; M48.02 Spinal stenosis, cervical region | CPT/HCPCS: 72141 ==

== ENCOUNTER 2021-02-21 13:43 | Outpatient (CLI) | payer OTHER | END 2021-02-21 13:44 | disposition home or self-care (01) | LOC: CT 13:43 | PROVIDERS: ATTEND Neurological Surgery | DX: I62.03 Nontraumatic chronic subdural hemorrhage (principal) | CPT/HCPCS: 70450 ==

== ENCOUNTER 2021-06-18 19:28 | Observation (INO) | payer OTHER ==
[2021-06-18 20:13] LABS: #Basophils 0.1 thou/uL (0.0-0.2); #Eosinphils 0.5 thou/uL (0.0-0.7); #Neutrophils 5.5 thou/uL (1.40-6.50); %Basophils 0.7 % (0.0-1.0); %Eosinophils 5.2 % (0.0-10.0); %Lymphocytes 22.3 % (21.0-51.0); %Monocytes 10.8 % (0.0-10.0); %Neutrophils 60.9 % (42.0-75.0); Hemoglobin 15.2 g/dL (14.0-18.0); Mean Corpuscular HGB CONC 35.4 g/dL (32.0-36.0); Mean Corpuscular Hemoglobin 35.8 pg (27.0-31.0); Mean Platelet Volume 7.5 fL (7.4-10.4); Platelet Count 206 thou/uL (130-400); RBC Distribution Width 11.3 % (11.5-14.5); Red Blood Cell (RBC) Count 4.23 mill/uL (4.70-6.10); White Blood Cell (WBC) Count 9.1 thou/uL (4.8-10.8)
[2021-06-18 20:34] LABS: ALT (SGPT) 32 U/L (8-55); AST (SGOT) 29 U/L (5-34); Albumin 3.8 g/dL (3.4-4.8); Alkaline Phosphatase 84 U/L (40-110); Anion Gap 16 mmol/L (10-20); BUN (Urea Nitrogen) 13 mg/dL (8.4-25.7); Bilirubin, Total 0.4 mg/dL (0.2-1.2); Calc. Creatinine Clearance 0 mL/min (70-130); Calcium 9.8 mg/dL (7.8-10.44); Carbon Dioxide 24 mmol/L (23-31); Chloride 94 mmol/L (98-107); Globulin 3.8 g/dL (2.4-3.5); Glucose 274 mg/dL (80-115); Potassium 4.1 mmol/L (3.5-5.1); Protein, Total 7.6 g/dL (5.8-8.1); Sodium 130 mmol/L (136-145)
[2021-06-18 20:41] LABS: Bacteria/HPF None Seen HPF (None Seen); Bilirubin Negative (Negative); Blood, Urine Negative (Negative); Clarity Clear (Clear); Glucose, Urine (Dipstick) Greater than 1000 mg/dL (Negative); Ketone, Urine Trace mg/dL (Negative); Leukocyte Negative Leu/uL (Negative); Nitrite Negative (Negative); Protein, Urine (Dipstick) 50 mg/dL (Neg-Trace); RBC/HPF 0-3 HPF (0-3); Specific Gravity, Urine 1.023 (1.002-1.036); Squamous Epithelial 0-3 HPF (0-3); Urobilinogen Normal mg/dL (Less than 2); WBC/HPF 0-3 HPF (0-3); pH, Urine 5.5 (5.0-9.0)
[2021-06-18 21:06] LABS: SARS-CoV-2 NAA Rapid Test Not Detected (NotDetected)
[2021-06-19] MEDS ORDERED: Dextrose 5% in Water 1,000 ML IV PRN (03:30)
[2021-06-19] MEDS ORDERED: Ondansetron ODT 4 MG TAB PO PRN (03:30)
[2021-06-19] MEDS ORDERED: Ondansetron PF 4 MG/2 ML Vial IVP PRN (03:30)
[2021-06-19] MEDS ORDERED: HumaLOG 300 UNITS/3 ML VIAL SC PRN ×2 (03:30)
[2021-06-19] MEDS ORDERED: traMADol HCl 50 MG TAB PO PRN (03:30)
[2021-06-19] MEDS ORDERED: Sodium Chloride 0.9% 1,000 ML IV SCH (03:30)
[2021-06-19] MEDS ORDERED: Dextrose 50% Abboject 50 ML SYRINGE SLOW IVP PRN ×2 (03:30)
[2021-06-19] MEDS ORDERED: hydrALAZINE 20 MG/ML VIAL SLOW IVP PRN (03:30)
[2021-06-19 03:50] LABS: #Basophils 0.1 thou/uL (0.0-0.2); #Eosinphils 0.7 thou/uL (0.0-0.7); #Lymphocytes 2.3 thou/uL (1.20-3.40); #Neutrophils 5.2 thou/uL (1.40-6.50); %Basophils 1.3 % (0.0-1.0); %Eosinophils 7.2 % (0.0-10.0); %Lymphocytes 24.2 % (21.0-51.0); %Monocytes 11.1 % (0.0-10.0); %Neutrophils 56.2 % (42.0-75.0); Hemoglobin 15.1 g/dL (14.0-18.0); Mean Corpuscular HGB CONC 35.7 g/dL (32.0-36.0); Mean Platelet Volume 7.2 fL (7.4-10.4); Platelet Count 185 thou/uL (130-400); RBC Distribution Width 11.2 % (11.5-14.5); Red Blood Cell (RBC) Count 4.19 mill/uL (4.70-6.10); White Blood Cell (WBC) Count 9.3 thou/uL (4.8-10.8)
[2021-06-19 04:09] LABS: Anion Gap 13 mmol/L (10-20); BUN (Urea Nitrogen) 10 mg/dL (8.4-25.7); Calc. Creatinine Clearance 0 mL/min (70-130); Calcium 9.4 mg/dL (7.8-10.44); Carbon Dioxide 27 mmol/L (23-31); Chloride 95 mmol/L (98-107); Glucose 185 mg/dL (80-115); Magnesium 1.6 mg/dL (1.6-2.6); Phosphorus 3.2 mg/dL (2.3-4.7); Potassium 3.8 mmol/L (3.5-5.1); Sodium 131 mmol/L (136-145)
[2021-06-19 04:13] LABS: PTT 25.4 sec (22.9-36.1); Prothrombin Time 13.6 sec (12.0-14.7)
[2021-06-19] MEDS ORDERED: Acetaminophen 500 MG TAB ONE (05:41)
[2021-06-19] MEDS ORDERED: Acetaminophen 500 MG TAB PO SCH (06:00)
[2021-06-19] MEDS ORDERED: Magnesium 2 GM/50 ML 2 GM in Premix Bag 1 BAG IVPB SCH (07:45)
[2021-06-19] MEDS ORDERED: PHOS-NAK 1 PKT PACK PO SCH (07:45)
[2021-06-19] MEDS ORDERED: Famotidine 20 MG TAB PO SCH (09:00)
[2021-06-19] MEDS ORDERED: Magnesium 2 GM/50 ML BAG (IN WATER) ONE (10:09)
[2021-06-19] MEDS ORDERED: Famotidine 20 MG TAB ONE (10:09)
[2021-06-19 10:37] VITALS: BP 150/92
[2021-06-19] MEDS ORDERED: HumaLOG 300 UNITS/3 ML VIAL ONE (14:12)
[2021-06-19] MEDS ORDERED: Tamsulosin HCl 0.4 MG CAP PO SCH (21:00)
[2021-06-20] MEDS ORDERED: Levothyroxine Sodium 25 MCG TAB PO SCH (06:00)
[2021-06-20] MEDS ORDERED: Spironolactone 25 MG TAB PO SCH (08:00)
[2021-06-20] MEDS ORDERED: Folic Acid 1 MG TAB PO SCH (09:00)
[2021-06-20] MEDS ORDERED: Escitalopram Oxalate 20 mg Tablet PO SCH (09:00)
[2021-06-20] MEDS ORDERED: Multivitamin W/ Minerals 1 TAB PO SCH (09:00)
[2021-06-20] MEDS ORDERED: Bupropion 150 MG SR TAB PO SCH (09:00)
[2021-06-20] MEDS ORDERED: Thiamine 100 MG TAB PO SCH (09:00)
[2021-06-20] MEDS ORDERED: Furosemide 20 MG TAB PO SCH (09:00)
== END 2021-06-19 17:39 | disposition home or self-care (01) ==
LOC: ERS 19:28 → ERHOLD 21:38 → INTOOBSV 21:38
PROVIDERS: ADMIT Surgery; ATTEND Surgery
DX: S06.5X9A Traumatic subdural hemorrhage with loss of consciousness of unspecified duration, initial encounter (principal); S06.6X9A Traumatic subarachnoid hemorrhage with loss of consciousness of unspecified duration, initial encounter; R40.2410 Glasgow coma scale score 13-15, unspecified time; R55 Syncope and collapse; E87.1 Hypo-osmolality and hyponatremia; I25.10 Atherosclerotic heart disease of native coronary artery without angina pectoris; I25.2 Old myocardial infarction; E11.9 Type 2 diabetes mellitus without complications; E03.9 Hypothyroidism, unspecified; N40.0 Benign prostatic hyperplasia without lower urinary tract symptoms; K70.30 Alcoholic cirrhosis of liver without ascites; F17.200 Nicotine dependence, unspecified, uncomplicated; J32.9 Chronic sinusitis, unspecified; F10.20 Alcohol dependence, uncomplicated; Z79.82 Long term (current) use of aspirin; Z79.84 Long term (current) use of oral hypoglycemic drugs; Z79.899 Other long term (current) drug therapy; Z88.0 Allergy status to penicillin; Z95.5 Presence of coronary angioplasty implant and graft; Z20.822 Contact with and (suspected) exposure to COVID-19; W18.30XA Fall on same level, unspecified, initial encounter
CPT/HCPCS: 36415; 36416; 70450; 71045; 80048; 80053; 81003; 81015; 83735; 84100; 84484; 85025; 85610; 85730; 93005; J1815; J3475; J7050; U0002; U0005

== ENCOUNTER 2021-07-11 13:53 | Outpatient (CLI) | payer OTHER | END 2021-07-11 13:54 | disposition home or self-care (01) | LOC: CT 13:53 | PROVIDERS: ATTEND Neurological Surgery | DX: S06.5X0A Traumatic subdural hemorrhage without loss of consciousness, initial encounter (principal) | CPT/HCPCS: 70450 ==

== ENCOUNTER 2021-12-18 11:38 | Outpatient (CLI) | payer OTHER | END 2021-12-18 11:39 | disposition home or self-care (01) | LOC: RAD-FRANK 11:38 | PROVIDERS: ATTEND Nurse Practitioner Family | DX: S89.91XA Unspecified injury of right lower leg, initial encounter (principal); M79.89 Other specified soft tissue disorders ==

== ENCOUNTER 2022-12-27 15:16 | Outpatient (CLI) | payer MEDICARE | END 2022-12-27 15:17 | disposition home or self-care (01) | LOC: SCSMRI 15:16 | PROVIDERS: ATTEND Orthopaedic Surgery Hand Surgery | DX: M47.22 Other spondylosis with radiculopathy, cervical region (principal); M48.02 Spinal stenosis, cervical region; M47.23 Other spondylosis with radiculopathy, cervicothoracic region | CPT/HCPCS: 70250; 72141 ==

== ENCOUNTER 2023-01-30 13:09 | Outpatient (CLI) | payer MEDICARE ==
[2023-01-30 14:09] LABS: #Basophils 0.1 10x3/uL (0.0-0.2); #Eosinphils 0.4 10x3/uL (0.0-0.5); #Monocytes 0.9 10x3/uL (0.0-1.1); #Neutrophils 5.9 10x3/uL (1.5-8.4); %Basophils 1.1 % (0.0-2.0); %Eosinophils 4.9 % (0.0-6.0); %Monocytes 9.8 % (0.0-10.0); %Neutrophils 66.2 % (40.0-75.0); Hemoglobin 16.1 g/dL (13.5-17.5); Mean Corpuscular HGB CONC 34.3 g/dL (32.0-36.0); Mean Corpuscular Hemoglobin 33.5 pg (27.0-33.0); Mean Corpuscular Volume 97.7 fl (81.2-95.1); Platelet Count 219 10x3/uL (150-450); RBC Distribution Width 11.7 % (11.5-14.5); Red Blood Cell (RBC) Count 4.81 10x6/uL (4.32-5.72); White Blood Cell (WBC) Count 8.9 10x3/uL (3.5-10.5)
== END 2023-01-30 13:10 | disposition home or self-care (01) ==
LOC: LABBT 13:09
PROVIDERS: ATTEND Orthopaedic Surgery Hand Surgery
DX: Z01.818 Encounter for other preprocedural examination (principal); G56.02 Carpal tunnel syndrome, left upper limb; G56.22 Lesion of ulnar nerve, left upper limb
CPT/HCPCS: 85025; 93005; 93010

== ENCOUNTER 2023-02-04 08:48 | Day surgery (SDC) | payer MEDICARE ==
[2023-01-30 14:30] VITALS: BMI 33.4
[2023-02-04] MEDS ORDERED: Bacitracin Zinc Ointment 30 gm TUBE ONE (09:10)
[2023-02-04] MEDS ORDERED: Bupivacaine PF 0.5% 30 ML VIAL ONE (09:10)
[2023-02-04] MEDS ORDERED: Neomycin-Polymyxin 1 ML AMP ONE (09:10)
[2023-02-04] MEDS ORDERED: Insulin Regular 300 UNITS/3 ML VIAL ONE (09:33)
[2023-02-04] MEDS ORDERED: Famotidine/PF 20 mg/2ml Vial ONE (09:33)
[2023-02-04] MEDS ORDERED: Midazolam HCl 2 mg/2 ml Vial ONE (10:07)
[2023-02-04] MEDS ORDERED: Ropivacaine 0.5% HCl/PF (150 MG/30 ML VIAL) ONE (10:29)
[2023-02-04] MEDS ORDERED: fentaNYL PF 100 MCG/2 ML SYRINGE ONE (11:19)
[2023-02-04] MEDS ORDERED: Propofol 1,000 MG/100 ML VIAL IV ONE (11:20)
[2023-02-04] MEDS ORDERED: Phenylephrine 10 MG/ML VIAL ONE (11:20)
[2023-02-04] MEDS ORDERED: Vancomycin 1 GM/200 ML (FROZEN) BAG ONE (11:32)
[2023-02-04] MEDS ORDERED: ePHEDrine Sulfate 50 MG/10 ML VIAL ONE (11:43)
== END 2023-02-04 15:30 | disposition home or self-care (01) ==
LOC: SDC 08:48
PROVIDERS: ATTEND Orthopaedic Surgery Hand Surgery
PROC: 01N50ZZ Release Median Nerve, Open Approach (ICD-10-PCS; principal; 2023-02-04)
PROC: 01N40ZZ Release Ulnar Nerve, Open Approach (ICD-10-PCS; 2023-02-04)
DX: G56.23 Lesion of ulnar nerve, bilateral upper limbs (principal); G56.03 Carpal tunnel syndrome, bilateral upper limbs; M47.22 Other spondylosis with radiculopathy, cervical region; M50.121 Cervical disc disorder at C4-C5 level with radiculopathy; M48.02 Spinal stenosis, cervical region; F17.200 Nicotine dependence, unspecified, uncomplicated; E11.9 Type 2 diabetes mellitus without complications; M19.90 Unspecified osteoarthritis, unspecified site; E07.9 Disorder of thyroid, unspecified; Z79.4 Long term (current) use of insulin; Z79.620 Long term (current) use of immunosuppressive biologic; Z79.82 Long term (current) use of aspirin; Z79.84 Long term (current) use of oral hypoglycemic drugs; Z79.85 Long-term (current) use of injectable non-insulin antidiabetic drugs; Z79.890 Hormone replacement therapy; Z79.899 Other long term (current) drug therapy; Z88.0 Allergy status to penicillin; Z95.5 Presence of coronary angioplasty implant and graft
CPT/HCPCS: 64718; 64721; 82962; J3370; 36416; J1815; J2250; J2370; J2704; J2795; S0020; S0028

== ENCOUNTER 2023-07-07 11:02 | Outpatient (CLI) | payer MEDICARE | END 2023-07-07 11:03 | disposition home or self-care (01) | LOC: RAD-FRANK 11:02 | PROVIDERS: ATTEND Nurse Practitioner Family | DX: R06.02 Shortness of breath (principal); I50.9 Heart failure, unspecified; J90 Pleural effusion, not elsewhere classified | CPT/HCPCS: 71046 ==

== ENCOUNTER 2023-11-12 17:47 | Inpatient (IN) | payer MEDICARE ==
[2023-11-12 18:14] LABS: #Basophils 0.1 thou/uL (0.0-0.2); #Eosinphils 0.2 thou/uL (0.0-0.7); #Monocytes 0.9 thou/uL (0.11-0.59); #Neutrophils 6.6 thou/uL (1.40-6.50); %Basophils 0.9 % (0.0-1.0); %Eosinophils 2.5 % (0.0-10.0); %Monocytes 9.6 % (0.0-10.0); %Neutrophils 74.3 % (42.0-75.0); Hematocrit 50.3 % (42.0-52.0); Hemoglobin 16.8 g/dL (14.0-18.0); Mean Corpuscular HGB CONC 33.4 g/dL (32.0-36.0); Mean Corpuscular Hemoglobin 31.8 pg (27.0-31.0); Mean Corpuscular Volume 95.3 fl (78.0-98.0); Mean Platelet Volume 9.5 fL (7.4-10.4); Platelet Count 226 10x3/uL (130-400); RBC Distribution Width 12.7 % (11.5-14.5); Red Blood Cell (RBC) Count 5.28 mill/uL (4.70-6.10); White Blood Cell (WBC) Count 8.9 10x3/uL (4.8-10.8)
[2023-11-12 18:36] LABS: ALT (SGPT) 22 U/L (8-55); AST (SGOT) 27 U/L (5-34); Albumin 3.7 g/dL (3.4-4.8); Alkaline Phosphatase 127 U/L (40-110); Anion Gap 19 mmol/L (10-20); BUN (Urea Nitrogen) 21 mg/dL (8.4-25.7); Bilirubin, Total 0.8 mg/dL (0.2-1.2); CK (CPK) 39 U/L (30-200); Calc. Creatinine Clearance 0 mL/min (70-130); Calcium 9.4 mg/dL (7.8-10.44); Carbon Dioxide 24 mmol/L (23-31); Chloride 94 mmol/L (98-107); Estimated GFR 74; Globulin 4.6 g/dL (2.4-3.5); Glucose 271 mg/dL (80-115); Lipase 14 U/L (8-78); Potassium 4.9 mmol/L (3.5-5.1); Protein, Total 8.3 g/dL (5.8-8.1); Sodium 132 mmol/L (136-145)
[2023-11-12 19:16] LABS: SARS-CoV-2 NAA Rapid Test Not Detected (NotDetected)
[2023-11-12 19:46] LABS: Bacteria/HPF None Seen HPF (None Seen); Bilirubin Negative (Negative); Blood, Urine Negative (Negative); CAUTI Indications for Culture Fever or rigors; Clarity Clear (Clear); Glucose, Urine (Dipstick) Greater than 1000 mg/dL (Negative); Ketone, Urine Negative (Negative); Leukocyte Negative Leu/uL (Negative); Nitrite Negative (Negative); Protein, Urine (Dipstick) Negative (Neg-Trace); RBC/HPF 0-3 HPF (0-3); Specific Gravity, Urine 1.015 (1.002-1.036); Squamous Epithelial 0-3 HPF (0-3); Urobilinogen Normal mg/dL (Less than 2); WBC/HPF 0-3 HPF (0-3); pH, Urine 6.5 (5.0-9.0)
[2023-11-12 19:50] LABS: Urine Culture Reflex No No
[2023-11-12] MEDS ORDERED: Ondansetron ODT 4 MG TAB PO PRN (20:39)
[2023-11-12] MEDS ORDERED: Ondansetron PF 4 MG/2 ML Vial IVP PRN (20:39)
[2023-11-12] MEDS ORDERED: Acetaminophen 650 MG Suppository PR PRN (20:39)
[2023-11-12] MEDS: Acetaminophen 325 MG TAB PO PRN (21:33)
[2023-11-12 22:30] LABS: Troponin I 0.041 ng/mL (< 0.028)
[2023-11-12] MEDS ORDERED: Dextrose 5% in Water 1,000 ML IV PRN (23:52)
[2023-11-12] MEDS ORDERED: Dextrose 50% Abboject 50 ML SYRINGE SLOW IVP PRN (23:52)
[2023-11-12] MEDS ORDERED: HumaLOG 300 UNITS/3 ML VIAL SC PRN (23:52)
[2023-11-12] MEDS ORDERED: Glucagon 1 MG/ML KIT IM PRN (23:52)
[2023-11-13] MEDS ORDERED: Lorazepam 1 MG TAB PO PRN
[2023-11-13] MEDS ORDERED: Lorazepam 2 MG/ML VIAL IM PRN
[2023-11-13] MEDS ORDERED: Ondansetron ODT 4 MG TAB PO PRN
[2023-11-13] MEDS ORDERED: Electrolyte Replacement Protocol 1 EACH FS SCH
[2023-11-13] MEDS: Lorazepam 1 MG TAB PO SCH ×4 (00:23→17:41)
[2023-11-13] MEDS: Thiamine HCl 200 MG/2 ML VIAL SLOW IVP SCH (00:24)
[2023-11-13 01:30] LABS: #Basophils 0.1 thou/uL (0.0-0.2); #Eosinphils 0.1 thou/uL (0.0-0.7); #Monocytes 1.3 thou/uL (0.11-0.59); #Neutrophils 7.7 thou/uL (1.40-6.50); %Basophils 0.8 % (0.0-1.0); %Eosinophils 1.3 % (0.0-10.0); %Lymphocytes 13.3 % (21.0-51.0); %Monocytes 11.7 % (0.0-10.0); %Neutrophils 72.4 % (42.0-75.0); Hematocrit 48.4 % (42.0-52.0); Mean Corpuscular HGB CONC 33.1 g/dL (32.0-36.0); Mean Corpuscular Hemoglobin 32.1 pg (27.0-31.0); Mean Corpuscular Volume 97.2 fl (78.0-98.0); Mean Platelet Volume 9.3 fL (7.4-10.4); Platelet Count 226 10x3/uL (130-400); RBC Distribution Width 12.8 % (11.5-14.5); Red Blood Cell (RBC) Count 4.98 mill/uL (4.70-6.10); White Blood Cell (WBC) Count 10.7 10x3/uL (4.8-10.8)
[2023-11-13 01:52] LABS: Magnesium 2.6 mg/dL (1.6-2.6)
[2023-11-13 01:57] LABS: Troponin I 0.035 ng/mL (< 0.028)
[2023-11-13 01:58] LABS: Anion Gap 14 mmol/L (10-20); BUN (Urea Nitrogen) 20 mg/dL (8.4-25.7); Calc. Creatinine Clearance 102 mL/min (70-130); Calcium 9.1 mg/dL (7.8-10.44); Carbon Dioxide 26 mmol/L (23-31); Chloride 98 mmol/L (98-107); Estimated GFR 94; Glucose 188 mg/dL (80-115); Potassium 4.2 mmol/L (3.5-5.1); Sodium 134 mmol/L (136-145)
[2023-11-13] MEDS: Levothyroxine Sodium 25 MCG TAB PO SCH (04:16)
[2023-11-13] MEDS: Morphine 4 MG/ML VIAL SLOW IVP PRN ×2 (04:17→11:43)
[2023-11-13] MEDS: Aripiprazole 10 MG TAB PO SCH (09:37)
[2023-11-13] MEDS: Multivit, Therapeutic 1 TAB PO SCH (09:37)
[2023-11-13] MEDS: Folic Acid 1 MG TAB PO SCH (09:37)
[2023-11-13] MEDS: Aspirin 81 mg Enteric Coated Tablet PO SCH (09:37)
[2023-11-14] MEDS ORDERED: Lorazepam 1 MG TAB PO PRN
[2023-11-14] MEDS: Thiamine HCl 200 MG/2 ML VIAL SLOW IVP SCH (02:35)
[2023-11-14] MEDS: Lorazepam 1 MG TAB PO SCH ×3 (02:35→14:03)
[2023-11-14 04:54] LABS: Calc. Creatinine Clearance 104 mL/min (70-130); Estimated GFR 94; Magnesium 2.1 mg/dL (1.6-2.6); Phosphorus 4.2 mg/dL (2.3-4.7); Potassium 4.5 mmol/L (3.5-5.1)
[2023-11-14] MEDS: Levothyroxine Sodium 25 MCG TAB PO SCH (05:44)
[2023-11-14] MEDS: HumaLOG 300 UNITS/3 ML VIAL SC PRN ×3 (05:50→18:27)
[2023-11-14] MEDS: Aripiprazole 10 MG TAB PO SCH (09:38)
[2023-11-14] MEDS: Aspirin 81 mg Enteric Coated Tablet PO SCH (09:38)
[2023-11-14] MEDS: Folic Acid 1 MG TAB PO SCH (09:38)
[2023-11-14] MEDS: Multivit, Therapeutic 1 TAB PO SCH (09:38)
[2023-11-14] MEDS: Acetaminophen 325 MG TAB PO PRN ×2 (14:00→21:21)
[2023-11-14] MEDS: chlordiazePOXIDE HCl 5 MG CAP PO SCH ×2 (15:54→20:14)
[2023-11-15] MEDS ORDERED: Lorazepam 1 MG TAB PO PRN
[2023-11-15] MEDS ORDERED: Lorazepam 0.5 MG TAB PO SCH
[2023-11-15] MEDS: Thiamine HCl 200 MG/2 ML VIAL SLOW IVP SCH (02:31)
[2023-11-15] MEDS: Levothyroxine Sodium 25 MCG TAB PO SCH (05:22)
[2023-11-15] MEDS: Aripiprazole 10 MG TAB PO SCH (08:49)
[2023-11-15] MEDS: Aspirin 81 mg Enteric Coated Tablet PO SCH (08:49)
[2023-11-15] MEDS: Folic Acid 1 MG TAB PO SCH (08:49)
[2023-11-15] MEDS: Multivit, Therapeutic 1 TAB PO SCH (08:49)
[2023-11-15] MEDS: HumaLOG 300 UNITS/3 ML VIAL SC PRN ×2 (12:23→18:02)
[2023-11-15 13:01] LABS: #Basophils 0.1 thou/uL (0.0-0.2); #Eosinphils 0.3 thou/uL (0.0-0.7); #Monocytes 1.3 thou/uL (0.11-0.59); #Neutrophils 7.3 thou/uL (1.40-6.50); %Basophils 0.5 % (0.0-1.0); %Eosinophils 2.5 % (0.0-10.0); %Lymphocytes 14.7 % (21.0-51.0); %Monocytes 11.9 % (0.0-10.0); %Neutrophils 69.8 % (42.0-75.0); Hematocrit 46.9 % (42.0-52.0); Hemoglobin 15.6 g/dL (14.0-18.0); Mean Corpuscular HGB CONC 33.3 g/dL (32.0-36.0); Mean Corpuscular Hemoglobin 32.7 pg (27.0-31.0); Mean Corpuscular Volume 98.3 fl (78.0-98.0); Mean Platelet Volume 9.6 fL (7.4-10.4); Platelet Count 229 10x3/uL (130-400); RBC Distribution Width 12.8 % (11.5-14.5); Red Blood Cell (RBC) Count 4.77 mill/uL (4.70-6.10); White Blood Cell (WBC) Count 10.5 10x3/uL (4.8-10.8)
[2023-11-15 13:48] LABS: Calcium 9.2 mg/dL (7.8-10.44); Chloride 99 mmol/L (98-107); Potassium 4.4 mmol/L (3.5-5.1); Sodium 131 mmol/L (136-145)
[2023-11-15 13:49] LABS: Glucose 181 mg/dL (80-115)
[2023-11-15 13:50] LABS: Anion Gap 18 mmol/L (10-20); Carbon Dioxide 18 mmol/L (23-31)
[2023-11-15 13:52] LABS: Calc. Creatinine Clearance 118 mL/min (70-130); Estimated GFR 98
[2023-11-15 13:53] LABS: BUN (Urea Nitrogen) 24 mg/dL (8.4-25.7)
[2023-11-15] MEDS ORDERED: Magnesium 2 GM/50 ML(in water) 2 GM in Premix 1 BAG IVPB SCH (14:15)
[2023-11-15] MEDS ORDERED: Polyethylene Glycol 3350 17 GM Packet PO PRN (16:09)
[2023-11-15] MEDS: Spironolactone 25 MG TAB PO SCH (16:28)
[2023-11-15 18:59] LABS: INR-International Normal Ratio 1.2; PTT 26.9 sec (22.9-36.1); Prothrombin Time 15.2 sec (12.0-14.7)
[2023-11-15] MEDS: chlordiazePOXIDE HCl 5 MG CAP PO SCH (20:42)
[2023-11-15] MEDS: Escitalopram Oxalate 20 mg Tablet PO SCH (20:42)
[2023-11-15] MEDS: Cyanocobalamin (Vitamin B-12) 1,000 MCG TAB PO SCH (20:42)
[2023-11-15] MEDS: Tamsulosin HCl 0.4 MG CAP PO SCH (20:42)
[2023-11-15] MEDS: Senokot S 8.6-50 MG TAB PO SCH (20:42)
[2023-11-15] MEDS: Insulin Glargine 30 UNITS/0.3 ML VIAL SC SCH (21:19)
[2023-11-16] MEDS ORDERED: Lorazepam 0.5 MG TAB PO PRN
[2023-11-16] MEDS: Levothyroxine Sodium 25 MCG TAB PO SCH (06:09)
[2023-11-16 07:45] LABS: #Basophils 0.1 thou/uL (0.0-0.2); #Eosinphils 0.3 thou/uL (0.0-0.7); #Monocytes 1.2 thou/uL (0.11-0.59); #Neutrophils 5.8 thou/uL (1.40-6.50); %Basophils 0.7 % (0.0-1.0); %Eosinophils 3.2 % (0.0-10.0); %Lymphocytes 15.3 % (21.0-51.0); %Monocytes 13.5 % (0.0-10.0); %Neutrophils 66.6 % (42.0-75.0); Hematocrit 48.2 % (42.0-52.0); Hemoglobin 15.8 g/dL (14.0-18.0); Mean Corpuscular HGB CONC 32.8 g/dL (32.0-36.0); Mean Corpuscular Hemoglobin 32.2 pg (27.0-31.0); Mean Corpuscular Volume 98.2 fl (78.0-98.0); Mean Platelet Volume 9.5 fL (7.4-10.4); Platelet Count 208 10x3/uL (130-400); RBC Distribution Width 12.8 % (11.5-14.5); Red Blood Cell (RBC) Count 4.91 mill/uL (4.70-6.10); White Blood Cell (WBC) Count 8.8 10x3/uL (4.8-10.8)
[2023-11-16 08:06] LABS: ALT (SGPT) 16 U/L (8-55); AST (SGOT) 18 U/L (5-34); Albumin 3.1 g/dL (3.4-4.8); Alkaline Phosphatase 105 U/L (40-110); Anion Gap 15 mmol/L (10-20); BUN (Urea Nitrogen) 19 mg/dL (8.4-25.7); Bilirubin, Total 1.6 mg/dL (0.2-1.2); Calc. Creatinine Clearance 122 mL/min (70-130); Carbon Dioxide 19 mmol/L (23-31); Chloride 100 mmol/L (98-107); Estimated GFR 99; Globulin 4.4 g/dL (2.4-3.5); Glucose 129 mg/dL (80-115); Phosphorus 3.6 mg/dL (2.3-4.7); Potassium 4.3 mmol/L (3.5-5.1); Protein, Total 7.5 g/dL (5.8-8.1); Sodium 130 mmol/L (136-145)
[2023-11-16] MEDS ORDERED: DC Electrolyte Protocol FS ONE (08:27)
[2023-11-16] MEDS: Multivit, Therapeutic 1 TAB PO SCH (08:30)
[2023-11-16] MEDS: Acetaminophen 325 MG TAB PO PRN ×2 (08:30→23:43)
[2023-11-16] MEDS: BuPROPion XL 150 MG ER.TAB PO SCH (08:31)
[2023-11-16] MEDS: Furosemide 40 MG TAB PO SCH (08:31)
[2023-11-16] MEDS: Loratadine 10 MG TAB PO SCH (08:31)
[2023-11-16] MEDS: Thiamine 100 MG TAB PO SCH (08:31)
[2023-11-16] MEDS: Senokot S 8.6-50 MG TAB PO SCH ×2 (08:31→20:04)
[2023-11-16] MEDS: Aripiprazole 10 MG TAB PO SCH (08:31)
[2023-11-16] MEDS: Spironolactone 25 MG TAB PO SCH ×2 (08:32→16:30)
[2023-11-16] MEDS: Folic Acid 1 MG TAB PO SCH (08:32)
[2023-11-16] MEDS: Aspirin 81 mg Enteric Coated Tablet PO SCH (08:32)
[2023-11-16] MEDS: chlordiazePOXIDE HCl 5 MG CAP PO SCH ×4 (08:36→20:05)
[2023-11-16] MEDS ORDERED: Cholecalciferol 1,000 UNITS (25 MCG) TAB PO SCH (09:00)
[2023-11-16] MEDS ORDERED: Magnesium 2 GM/50 ML(in water) 2 GM in Premix 1 BAG IVPB SCH (11:15)
[2023-11-16] MEDS: HumaLOG 300 UNITS/3 ML VIAL SC PRN ×2 (11:59→17:42)
[2023-11-16 17:42] VITALS: BMI 30.2
[2023-11-16] MEDS: Escitalopram Oxalate 20 mg Tablet PO SCH (20:05)
[2023-11-16] MEDS: Cyanocobalamin (Vitamin B-12) 1,000 MCG TAB PO SCH (20:05)
[2023-11-16] MEDS: Insulin Glargine 30 UNITS/0.3 ML VIAL SC SCH (20:05)
[2023-11-16] MEDS: Tamsulosin HCl 0.4 MG CAP PO SCH (20:05)
[2023-11-17] MEDS: Levothyroxine Sodium 25 MCG TAB PO SCH (05:08)
[2023-11-17] MEDS: Senokot S 8.6-50 MG TAB PO SCH ×2 (08:29→20:33)
[2023-11-17] MEDS: Furosemide 40 MG TAB PO SCH (08:29)
[2023-11-17] MEDS: Multivit, Therapeutic 1 TAB PO SCH (08:30)
[2023-11-17] MEDS: BuPROPion XL 150 MG ER.TAB PO SCH (08:30)
[2023-11-17] MEDS: Spironolactone 25 MG TAB PO SCH ×2 (08:30→16:12)
[2023-11-17] MEDS: Aripiprazole 10 MG TAB PO SCH (08:30)
[2023-11-17] MEDS: chlordiazePOXIDE HCl 5 MG CAP PO SCH ×2 (08:30→20:33)
[2023-11-17] MEDS: Folic Acid 1 MG TAB PO SCH (08:30)
[2023-11-17] MEDS: Loratadine 10 MG TAB PO SCH (08:30)
[2023-11-17] MEDS: Aspirin 81 mg Enteric Coated Tablet PO SCH (08:30)
[2023-11-17] MEDS: Thiamine 100 MG TAB PO SCH (08:30)
[2023-11-17 09:51] LABS: ALT (SGPT) 26 U/L (8-55); AST (SGOT) 29 U/L (5-34); Albumin 3.3 g/dL (3.4-4.8); Alkaline Phosphatase 127 U/L (40-110); Anion Gap 17 mmol/L (10-20); BUN (Urea Nitrogen) 21 mg/dL (8.4-25.7); Bilirubin, Total 1.4 mg/dL (0.2-1.2); Calc. Creatinine Clearance 129 mL/min (70-130); Calcium 9.2 mg/dL (7.8-10.44); Carbon Dioxide 21 mmol/L (23-31); Chloride 97 mmol/L (98-107); Estimated GFR 101; Globulin 4.8 g/dL (2.4-3.5); Glucose 156 mg/dL (80-115); Potassium 4.2 mmol/L (3.5-5.1); Protein, Total 8.1 g/dL (5.8-8.1); Sodium 131 mmol/L (136-145)
[2023-11-17] MEDS: HumaLOG 300 UNITS/3 ML VIAL SC PRN ×2 (13:05→18:06)
[2023-11-17] MEDS: Acetaminophen 325 MG TAB PO PRN (16:12)
[2023-11-17] MEDS ORDERED: Communication Order-Pharmacy FS SCH (18:45)
[2023-11-17] MEDS: Escitalopram Oxalate 20 mg Tablet PO SCH (20:33)
[2023-11-17] MEDS: Tamsulosin HCl 0.4 MG CAP PO SCH (20:33)
[2023-11-17] MEDS: Cyanocobalamin (Vitamin B-12) 1,000 MCG TAB PO SCH (20:33)
[2023-11-17] MEDS: Insulin Glargine 30 UNITS/0.3 ML VIAL SC SCH (21:47)
[2023-11-18] MEDS: Levothyroxine Sodium 25 MCG TAB PO SCH (04:42)
[2023-11-18] MEDS: Aripiprazole 10 MG TAB PO SCH (05:12)
[2023-11-18] MEDS: Thiamine 100 MG TAB PO SCH (05:12)
[2023-11-18] MEDS: BuPROPion XL 150 MG ER.TAB PO SCH (05:12)
[2023-11-18] MEDS: Loratadine 10 MG TAB PO SCH (05:12)
[2023-11-18] MEDS: Folic Acid 1 MG TAB PO SCH (05:12)
[2023-11-18] MEDS: Multivit, Therapeutic 1 TAB PO SCH (05:12)
[2023-11-18 05:29] LABS: #Basophils 0.1 thou/uL (0.0-0.2); #Eosinphils 0.6 thou/uL (0.0-0.7); #Monocytes 1.1 thou/uL (0.11-0.59); #Neutrophils 6.2 thou/uL (1.40-6.50); %Basophils 0.7 % (0.0-1.0); %Eosinophils 6.3 % (0.0-10.0); %Lymphocytes 16.4 % (21.0-51.0); %Monocytes 11.5 % (0.0-10.0); %Neutrophils 64.2 % (42.0-75.0); Hematocrit 45.5 % (42.0-52.0); Hemoglobin 15.1 g/dL (14.0-18.0); Mean Corpuscular HGB CONC 33.2 g/dL (32.0-36.0); Mean Corpuscular Hemoglobin 32.2 pg (27.0-31.0); Mean Platelet Volume 9.6 fL (7.4-10.4); Platelet Count 245 10x3/uL (130-400); RBC Distribution Width 12.6 % (11.5-14.5); Red Blood Cell (RBC) Count 4.69 mill/uL (4.70-6.10); White Blood Cell (WBC) Count 9.7 10x3/uL (4.8-10.8)
[2023-11-18 05:55] LABS: Anion Gap 14 mmol/L (10-20); BUN (Urea Nitrogen) 20 mg/dL (8.4-25.7); Calc. Creatinine Clearance 129 mL/min (70-130); Carbon Dioxide 23 mmol/L (23-31); Chloride 99 mmol/L (98-107); Estimated GFR 101; Glucose 179 mg/dL (80-115); Magnesium 1.9 mg/dL (1.6-2.6); Sodium 132 mmol/L (136-145)
[2023-11-18] MEDS ORDERED: Heparin 10,000 UNITS/ 10 ML VIAL ONE (07:59)
[2023-11-18] MEDS ORDERED: Nitroglycerin 50 MG/250 ML BOT 0 ML ONE (07:59)
[2023-11-18] MEDS: chlordiazePOXIDE HCl 5 MG CAP PO SCH ×2 (08:07→19:56)
[2023-11-18] MEDS: Aspirin 81 mg Enteric Coated Tablet PO SCH (08:07)
[2023-11-18] MEDS: Spironolactone 25 MG TAB PO SCH ×2 (08:12→17:50)
[2023-11-18] MEDS: Senokot S 8.6-50 MG TAB PO SCH ×2 (08:13→19:57)
[2023-11-18] MEDS ORDERED: Magnesium 2 GM/50 ML(in water) 2 GM in Premix 1 BAG IVPB SCH (08:30)
[2023-11-18] MEDS ORDERED: Acetaminophen/Codeine 30-300mg Tablet PO PRN ×2 (10:09)
[2023-11-18] MEDS ORDERED: Sodium Chloride 0.9% 200 ML IV PRN (10:09)
[2023-11-18] MEDS ORDERED: Nitroglycerin 0.4 MG TAB (25 Tab Bottle) SL PRN (10:09)
[2023-11-18] MEDS ORDERED: Sacubitril 24MG/Valsartan 26 MG TAB PO SCH (11:00)
[2023-11-18] MEDS: Furosemide 40 MG TAB PO SCH (11:01)
[2023-11-18] MEDS ORDERED: Insulin Glargine 30 UNITS/0.3 ML VIAL SC SCH (13:00)
[2023-11-18] MEDS: HumaLOG 300 UNITS/3 ML VIAL SC PRN (17:49)
[2023-11-18] MEDS: Cyanocobalamin (Vitamin B-12) 1,000 MCG TAB PO SCH (19:56)
[2023-11-18] MEDS: Tamsulosin HCl 0.4 MG CAP PO SCH (19:56)
[2023-11-18] MEDS: Escitalopram Oxalate 20 mg Tablet PO SCH (19:56)
[2023-11-18] MEDS: Sacubitril 24MG/Valsartan 26 MG TAB PO SCH (19:57)
[2023-11-18] MEDS: Atorvastatin Calcium 40 MG TAB PO SCH (20:16)
[2023-11-18] MEDS: Insulin Glargine 30 UNITS/0.3 ML VIAL SC SCH (20:39)
[2023-11-19 06:09] LABS: Cardiac Risk 6.3 (Less than 4.5)
[2023-11-19] MEDS ORDERED: chlordiazePOXIDE HCl 5 MG CAP PO SCH (09:00)
[2023-11-19] MEDS ORDERED: Furosemide 80 MG TAB PO SCH (09:00)
[2023-11-19] MEDS: Midodrine HCl 5 MG TAB PO PRN ×2 (13:20→17:29)
[2023-11-19] MEDS: HumaLOG 300 UNITS/3 ML VIAL SC PRN ×2 (14:11→18:30)
[2023-11-19] MEDS: Spironolactone 25 MG TAB PO SCH ×2 (17:30→18:23)
[2023-11-19] MEDS: Aripiprazole 10 MG TAB PO SCH (18:23)
[2023-11-19] MEDS: Aspirin 81 mg Enteric Coated Tablet PO SCH (18:23)
[2023-11-19] MEDS: Furosemide 40 MG TAB PO SCH (18:23)
[2023-11-19] MEDS: Multivit, Therapeutic 1 TAB PO SCH (18:24)
[2023-11-19] MEDS: Loratadine 10 MG TAB PO SCH (18:24)
[2023-11-19] MEDS: Folic Acid 1 MG TAB PO SCH (18:24)
[2023-11-19] MEDS: Senokot S 8.6-50 MG TAB PO SCH ×2 (18:24→20:45)
[2023-11-19] MEDS: BuPROPion XL 150 MG ER.TAB PO SCH (18:24)
[2023-11-19] MEDS: Thiamine 100 MG TAB PO SCH (18:24)
[2023-11-19] MEDS: Empagliflozin 10 MG TAB PO SCH (18:24)
[2023-11-19] MEDS: Sacubitril 24MG/Valsartan 26 MG TAB PO SCH (18:24)
[2023-11-19] MEDS: Levothyroxine Sodium 25 MCG TAB PO SCH (19:13)
[2023-11-19] MEDS: Tamsulosin HCl 0.4 MG CAP PO SCH (20:45)
[2023-11-19] MEDS: Cyanocobalamin (Vitamin B-12) 1,000 MCG TAB PO SCH (20:45)
[2023-11-19] MEDS: Atorvastatin Calcium 40 MG TAB PO SCH (20:45)
[2023-11-19] MEDS: chlordiazePOXIDE HCl 5 MG CAP PO SCH (20:45)
[2023-11-19] MEDS: Escitalopram Oxalate 20 mg Tablet PO SCH (20:45)
[2023-11-19] MEDS: Insulin Glargine 30 UNITS/0.3 ML VIAL SC SCH (21:06)
[2023-11-20] MEDS: Levothyroxine Sodium 25 MCG TAB PO SCH (04:43)
[2023-11-20 05:58] LABS: #Basophils 0.1 thou/uL (0.0-0.2); #Eosinphils 0.5 thou/uL (0.0-0.7); #Monocytes 0.9 thou/uL (0.11-0.59); #Neutrophils 4.7 thou/uL (1.40-6.50); %Basophils 0.8 % (0.0-1.0); %Eosinophils 7.1 % (0.0-10.0); %Lymphocytes 16.4 % (21.0-51.0); %Monocytes 11.9 % (0.0-10.0); %Neutrophils 62.9 % (42.0-75.0); Hematocrit 42.8 % (42.0-52.0); Hemoglobin 14.1 g/dL (14.0-18.0); Mean Corpuscular HGB CONC 32.9 g/dL (32.0-36.0); Mean Corpuscular Hemoglobin 32.3 pg (27.0-31.0); Mean Corpuscular Volume 97.9 fl (78.0-98.0); Mean Platelet Volume 9.7 fL (7.4-10.4); Platelet Count 247 10x3/uL (130-400); RBC Distribution Width 12.4 % (11.5-14.5); Red Blood Cell (RBC) Count 4.37 mill/uL (4.70-6.10); White Blood Cell (WBC) Count 7.5 10x3/uL (4.8-10.8)
[2023-11-20 06:27] LABS: Anion Gap 15 mmol/L (10-20); BUN (Urea Nitrogen) 15 mg/dL (8.4-25.7); Calc. Creatinine Clearance 122 mL/min (70-130); Calcium 8.9 mg/dL (7.8-10.44); Carbon Dioxide 21 mmol/L (23-31); Chloride 102 mmol/L (98-107); Estimated GFR 99; Glucose 111 mg/dL (80-115); Magnesium 1.7 mg/dL (1.6-2.6); Potassium 3.8 mmol/L (3.5-5.1); Sodium 134 mmol/L (136-145)
[2023-11-20] MEDS: Aripiprazole 10 MG TAB PO SCH (08:50)
[2023-11-20] MEDS: Furosemide 40 MG TAB PO SCH (08:50)
[2023-11-20] MEDS: Thiamine 100 MG TAB PO SCH (08:50)
[2023-11-20] MEDS: BuPROPion XL 150 MG ER.TAB PO SCH (08:50)
[2023-11-20] MEDS: Loratadine 10 MG TAB PO SCH (08:50)
[2023-11-20] MEDS: Multivit, Therapeutic 1 TAB PO SCH (08:50)
[2023-11-20] MEDS: Spironolactone 25 MG TAB PO SCH (08:51)
[2023-11-20] MEDS: Senokot S 8.6-50 MG TAB PO SCH (08:51)
[2023-11-20] MEDS: Folic Acid 1 MG TAB PO SCH (08:51)
[2023-11-20] MEDS: Aspirin 81 mg Enteric Coated Tablet PO SCH (08:51)
[2023-11-20] MEDS: Empagliflozin 10 MG TAB PO SCH (08:52)
[2023-11-20] MEDS: Midodrine HCl 5 MG TAB PO PRN (12:31)
[2023-11-20] MEDS ORDERED: Midodrine HCl 5 MG TAB PO SCH (15:00)
[2023-11-20 15:20] VITALS: BP 94/65; TEMP 98.6
[2023-11-20] MEDS ORDERED: Insulin Glargine 30 UNITS/0.3 ML VIAL SC SCH (21:00)
== END 2023-11-20 17:50 | disposition home or self-care (01) | DRG 287 ==
LOC: ERS 17:47 → 2SW 20:15 → OBSVTOIN 11-14 14:04
PROVIDERS: ADMIT Student in an Organized Health Care Education/Training Program; ATTEND Internal Medicine
PROC: B2111ZZ Fluoroscopy of Multiple Coronary Arteries using Low Osmolar Contrast (ICD-10-PCS; principal; 2023-11-18)
PROC: 4A023N7 Measurement of Cardiac Sampling and Pressure, Left Heart, Percutaneous Approach (ICD-10-PCS; 2023-11-18)
PROC: B2151ZZ Fluoroscopy of Left Heart using Low Osmolar Contrast (ICD-10-PCS; 2023-11-18)
DX: I95.1 Orthostatic hypotension (principal); I42.0 Dilated cardiomyopathy; I50.22 Chronic systolic (congestive) heart failure; E87.1 Hypo-osmolality and hyponatremia; S00.03XA Contusion of scalp, initial encounter; E11.9 Type 2 diabetes mellitus without complications; I25.2 Old myocardial infarction; E03.9 Hypothyroidism, unspecified; N40.0 Benign prostatic hyperplasia without lower urinary tract symptoms; R29.6 Repeated falls; I25.10 Atherosclerotic heart disease of native coronary artery without angina pectoris; F32.A Depression, unspecified; I35.0 Nonrheumatic aortic (valve) stenosis; E83.42 Hypomagnesemia; F10.20 Alcohol dependence, uncomplicated; Z88.0 Allergy status to penicillin; Z79.890 Hormone replacement therapy; Z79.899 Other long term (current) drug therapy; Z79.82 Long term (current) use of aspirin; Z79.4 Long term (current) use of insulin; Z90.49 Acquired absence of other specified parts of digestive tract; Z98.890 Other specified postprocedural states; Z11.52 Encounter for screening for COVID-19
CPT/HCPCS: 36415; 36416; 70450; 71045; 80048; 80053; 80061; 81001; 82140; 82550; 82565; 83690; 83735; 84100; 84132; 84146; 84484; 85025; 85610; 85730; 93005; 93306; 93460; 93798; 96360; 96361; 96374; 96375; 96376; 97139; C1751; C1769; C1894; G0378; J1644; J1815; J2270; J3411; J3475

== ENCOUNTER 2024-08-12 20:30 | Inpatient (IN) | payer MEDICARE, OTHER ==
[~2024-08-12 20:30] MED LIST: Iopamidol-370 76% 500 ML MDV (1 ML CHARGE) ONE
[2024-08-12 21:05] LABS: #Basophils 0.06 10x3/uL (0.0-0.2); %Basophils 0.5 % (0.0-1.0); %Eosinophils 4.3 % (0.0-10.0); %Monocytes 9.9 % (0.0-10.0); %Neutrophils 72.5 % (42.0-75.0); Hematocrit 30.6 % (42.0-52.0); Hemoglobin 9.4 g/dL (14.0-18.0); Mean Corpuscular HGB CONC 30.7 g/dL (32.0-36.0); Mean Corpuscular Hemoglobin 28.5 pg (27.0-31.0); Mean Corpuscular Volume 92.7 fL (78.0-98.0); Mean Platelet Volume 9.4 fL (7.4-10.4); Platelet Count 279 10x3/uL (130-400); RBC Distribution Width 17.8 % (11.5-14.5)
[2024-08-12 21:19] LABS: ALT (SGPT) 21 U/L (8-55); AST (SGOT) 31 U/L (5-34); Albumin 2.6 g/dL (3.4-4.8); Alkaline Phosphatase 121 U/L (40-110); Anion Gap 13 mmol/L (10-20); BUN (Urea Nitrogen) 22 mg/dL (8.4-25.7); Bilirubin, Total 0.6 mg/dL (0.2-1.2); Calc. Creatinine Clearance 0 mL/min (70-130); Calcium 8.4 mg/dL (7.8-10.44); Carbon Dioxide 26 mmol/L (23-31); Chloride 101 mmol/L (98-107); Estimated GFR 98; Globulin 4.8 g/dL (2.4-3.5); Glucose 113 mg/dL (80-115); INR-International Normal Ratio 1.5; Potassium 3.8 mmol/L (3.5-5.1); Protein, Total 7.4 g/dL (5.8-8.1); Prothrombin Time 17.9 sec (12.0-14.7); Sodium 136 mmol/L (136-145)
[2024-08-12 21:20] LABS: PTT 31.5 sec (22.9-36.1)
[2024-08-12] MEDS ORDERED: Morphine 4 MG/ML VIAL SLOW IVP PRN (21:32)
[2024-08-12] MEDS ORDERED: Ondansetron ODT 4 MG TAB PO PRN (21:32)
[2024-08-12] MEDS ORDERED: Glucagon 1 MG/ML KIT IM PRN (21:32)
[2024-08-12] MEDS ORDERED: Ondansetron PF 4 MG/2 ML Vial IVP PRN (21:32)
[2024-08-12] MEDS ORDERED: Dextrose 5% in Water 1,000 ML IV PRN (21:32)
[2024-08-12] MEDS ORDERED: Ketorolac Tromethamine 30 MG (1 mL) VIAL ONE (21:40)
[2024-08-12] MEDS ORDERED: Morphine 4 MG/ML VIAL ONE (22:10)
[2024-08-13 02:14] VITALS: BMI 29.3
[2024-08-13] MEDS: Lactated Ringer's 1,000 ML IV SCH (02:25)
[2024-08-13] MEDS: Morphine 2 MG/ML VIAL SLOW IVP PRN (02:31)
[2024-08-13] MEDS: Ketorolac Tromethamine 30 MG (1 mL) VIAL IVP SCH ×2 (02:33)
[2024-08-13 03:34] LABS: #Basophils 0.04 10x3/uL (0.0-0.2); %Basophils 0.4 % (0.0-1.0); %Eosinophils 2.1 % (0.0-10.0); %Lymphocytes 12.7 % (21.0-51.0); %Monocytes 11.7 % (0.0-10.0); %Neutrophils 72.3 % (42.0-75.0); Hematocrit 31.1 % (42.0-52.0); Hemoglobin 9.4 g/dL (14.0-18.0); Mean Corpuscular HGB CONC 30.2 g/dL (32.0-36.0); Mean Corpuscular Hemoglobin 28.4 pg (27.0-31.0); Mean Platelet Volume 9.4 fL (7.4-10.4); Platelet Count 270 10x3/uL (130-400); RBC Distribution Width 18.2 % (11.5-14.5); Red Blood Cell (RBC) Count 3.31 mill/uL (4.70-6.10)
[2024-08-13 04:03] LABS: ALT (SGPT) 22 U/L (8-55); AST (SGOT) 28 U/L (5-34); Albumin 2.5 g/dL (3.4-4.8); Alkaline Phosphatase 117 U/L (40-110); Anion Gap 14 mmol/L (10-20); BUN (Urea Nitrogen) 23 mg/dL (8.4-25.7); Bilirubin, Total 1.1 mg/dL (0.2-1.2); Calc. Creatinine Clearance 112 mL/min (70-130); Calcium 8.4 mg/dL (7.8-10.44); Carbon Dioxide 26 mmol/L (23-31); Chloride 100 mmol/L (98-107); Estimated GFR 97; Globulin 4.6 g/dL (2.4-3.5); Glucose 83 mg/dL (80-115); Potassium 3.7 mmol/L (3.5-5.1); Protein, Total 7.1 g/dL (5.8-8.1); Sodium 136 mmol/L (136-145)
[2024-08-13] MEDS: Dextrose 50% Abboject 50 ML SYRINGE SLOW IVP PRN (06:16)
[2024-08-13] MEDS: Levothyroxine Sodium 25 MCG TAB PO SCH (06:25)
[2024-08-13] MEDS: Famotidine 20 MG TAB PO SCH (08:13)
[2024-08-13] MEDS: Empagliflozin 10 MG TAB PO SCH (08:13)
[2024-08-13] MEDS: Multivit, Therapeutic 1 TAB PO SCH (08:13)
[2024-08-13] MEDS: Amiodarone 200 MG TAB PO SCH (08:13)
[2024-08-13] MEDS: Aripiprazole 10 MG TAB PO SCH (08:13)
[2024-08-13] MEDS: Acetaminophen 500 MG TAB PO SCH (08:13)
[2024-08-13] MEDS: Loratadine 10 MG TAB PO SCH (08:14)
[2024-08-13] MEDS: Midodrine HCl 5 MG TAB PO SCH (08:14)
[2024-08-13 11:06] LABS: #Basophils 0.06 10x3/uL (0.0-0.2); %Basophils 0.5 % (0.0-1.0); %Eosinophils 7.9 % (0.0-10.0); %Lymphocytes 10.5 % (21.0-51.0); %Monocytes 12.5 % (0.0-10.0); %Neutrophils 68.1 % (42.0-75.0); Hematocrit 31.2 % (42.0-52.0); Hemoglobin 9.5 g/dL (14.0-18.0); Mean Corpuscular HGB CONC 30.4 g/dL (32.0-36.0); Mean Corpuscular Hemoglobin 28.4 pg (27.0-31.0); Mean Corpuscular Volume 93.1 fL (78.0-98.0); Mean Platelet Volume 9.4 fL (7.4-10.4); Platelet Count 273 10x3/uL (130-400); RBC Distribution Width 18.5 % (11.5-14.5); Red Blood Cell (RBC) Count 3.35 mill/uL (4.70-6.10)
[2024-08-13] MEDS: traMADol HCl 50 MG TAB PO PRN (12:04)
[2024-08-13 12:59] LABS: #Basophils 0.05 10x3/uL (0.0-0.2); %Basophils 0.5 % (0.0-1.0); %Eosinophils 9.2 % (0.0-10.0); %Lymphocytes 10.5 % (21.0-51.0); %Monocytes 12.4 % (0.0-10.0); %Neutrophils 66.9 % (42.0-75.0); Hemoglobin 9.8 g/dL (14.0-18.0); Mean Corpuscular HGB CONC 30.6 g/dL (32.0-36.0); Mean Corpuscular Hemoglobin 28.6 pg (27.0-31.0); Mean Corpuscular Volume 93.3 fL (78.0-98.0); Mean Platelet Volume 9.6 fL (7.4-10.4); Platelet Count 265 10x3/uL (130-400); RBC Distribution Width 18.5 % (11.5-14.5); Red Blood Cell (RBC) Count 3.43 mill/uL (4.70-6.10)
[2024-08-13] MEDS: Methylcellulose 500 MG TAB PO SCH ×2 (13:21→21:25)
[2024-08-13] MEDS: Polyethylene Glycol 3350 17 GM Packet PO SCH ×2 (13:21→21:25)
[2024-08-13 14:13] LABS: #Basophils 0.05 10x3/uL (0.0-0.2); %Basophils 0.4 % (0.0-1.0); %Monocytes 11.6 % (0.0-10.0); %Neutrophils 68.4 % (42.0-75.0); Hematocrit 30.9 % (42.0-52.0); Hemoglobin 9.3 g/dL (14.0-18.0); Mean Corpuscular HGB CONC 30.1 g/dL (32.0-36.0); Mean Corpuscular Hemoglobin 28.1 pg (27.0-31.0); Mean Corpuscular Volume 93.4 fL (78.0-98.0); Mean Platelet Volume 9.7 fL (7.4-10.4); Platelet Count 284 10x3/uL (130-400); RBC Distribution Width 18.3 % (11.5-14.5); Red Blood Cell (RBC) Count 3.31 mill/uL (4.70-6.10)
[2024-08-13] MEDS: Insulin Glargine 30 UNITS/0.3 ML VIAL SC SCH (20:21)
[2024-08-13] MEDS: Pantoprazole 40 MG VIAL IVP SCH (20:21)
[2024-08-13] MEDS: Atorvastatin Calcium 40 MG TAB PO SCH (20:21)
[2024-08-14 03:32] LABS: #Basophils 0.07 10x3/uL (0.0-0.2); %Basophils 0.5 % (0.0-1.0); %Eosinophils 13.5 % (0.0-10.0); %Lymphocytes 10.1 % (21.0-51.0); %Neutrophils 64.4 % (42.0-75.0); Hematocrit 32.7 % (42.0-52.0); Hemoglobin 9.9 g/dL (14.0-18.0); Mean Corpuscular HGB CONC 30.3 g/dL (32.0-36.0); Mean Corpuscular Volume 92.6 fL (78.0-98.0); Mean Platelet Volume 9.7 fL (7.4-10.4); Platelet Count 268 10x3/uL (130-400); RBC Distribution Width 18.1 % (11.5-14.5); Red Blood Cell (RBC) Count 3.53 mill/uL (4.70-6.10)
[2024-08-14 04:14] LABS: ALT (SGPT) 23 U/L (8-55); AST (SGOT) 32 U/L (5-34); Albumin 2.3 g/dL (3.4-4.8); Alkaline Phosphatase 123 U/L (40-110); Anion Gap 14 mmol/L (10-20); BUN (Urea Nitrogen) 30 mg/dL (8.4-25.7); Bilirubin, Total 0.8 mg/dL (0.2-1.2); Calc. Creatinine Clearance 112 mL/min (70-130); Calcium 8.4 mg/dL (7.8-10.44); Carbon Dioxide 26 mmol/L (23-31); Chloride 101 mmol/L (98-107); Estimated GFR 97; Globulin 4.9 g/dL (2.4-3.5); Glucose 85 mg/dL (80-115); Potassium 3.5 mmol/L (3.5-5.1); Protein, Total 7.2 g/dL (5.8-8.1); Sodium 137 mmol/L (136-145)
[2024-08-14] MEDS ORDERED: PROPOFOL 20 ML ONE (10:36)
[2024-08-14] MEDS ORDERED: Clindamycin/D5W 900 mg/50 ml Premix Bag ONE (10:36)
[2024-08-14] MEDS ORDERED: Ondansetron PF 4 MG/2 ML Vial ONE (10:37)
[2024-08-14] MEDS ORDERED: Lidocaine 1% PF 5 ML VIAL ONE (10:37)
[2024-08-14] MEDS ORDERED: ePHEDrine Sulfate 50 MG/10 ML VIAL ONE (10:42)
[2024-08-14] MEDS ORDERED: PHENYLEPHRINE-NS 100 MCG/ML 10 ML SYRINGE ONE ×2 (11:13→12:16)
[2024-08-14] MEDS ORDERED: Vasopressin 20 UNITS/ML VIAL ONE (12:22)
[2024-08-14] MEDS: ePHEDrine 50 MG/ML VIAL IM SCH (13:02)
[2024-08-15 04:59] LABS: #Basophils 0.06 10x3/uL (0.0-0.2); %Basophils 0.5 % (0.0-1.0); %Eosinophils 8.5 % (0.0-10.0); %Lymphocytes 11.3 % (21.0-51.0); %Monocytes 10.9 % (0.0-10.0); %Neutrophils 68.3 % (42.0-75.0); Hematocrit 31.3 % (42.0-52.0); Hemoglobin 9.6 g/dL (14.0-18.0); Mean Corpuscular HGB CONC 30.7 g/dL (32.0-36.0); Mean Corpuscular Hemoglobin 27.9 pg (27.0-31.0); Mean Platelet Volume 9.7 fL (7.4-10.4); Platelet Count 269 10x3/uL (130-400); RBC Distribution Width 17.8 % (11.5-14.5); Red Blood Cell (RBC) Count 3.44 mill/uL (4.70-6.10)
[2024-08-15 05:11] LABS: ALT (SGPT) 19 U/L (8-55); AST (SGOT) 27 U/L (5-34); Alkaline Phosphatase 113 U/L (40-110); Anion Gap 13 mmol/L (10-20); BUN (Urea Nitrogen) 31 mg/dL (8.4-25.7); Bilirubin, Total 0.8 mg/dL (0.2-1.2); Calc. Creatinine Clearance 112 mL/min (70-130); Calcium 8.2 mg/dL (7.8-10.44); Carbon Dioxide 27 mmol/L (23-31); Chloride 103 mmol/L (98-107); Estimated GFR 97; Globulin 4.3 g/dL (2.4-3.5); Glucose 160 mg/dL (80-115); Potassium 3.9 mmol/L (3.5-5.1); Protein, Total 6.3 g/dL (5.8-8.1); Sodium 139 mmol/L (136-145)
[2024-08-15] MEDS: Insulin Lispro 100 UNIT/ML 10 ML VIAL SC PRN (16:59)
[2024-08-15] MEDS: Apixaban 5 MG TAB PO SCH (21:19)
[2024-08-16 03:30] LABS: #Basophils 0.04 10x3/uL (0.0-0.2); %Basophils 0.3 % (0.0-1.0); %Eosinophils 7.8 % (0.0-10.0); %Lymphocytes 10.2 % (21.0-51.0); %Monocytes 8.2 % (0.0-10.0); Hematocrit 30.6 % (42.0-52.0); Hemoglobin 9.4 g/dL (14.0-18.0); Mean Corpuscular HGB CONC 30.7 g/dL (32.0-36.0); Mean Corpuscular Hemoglobin 28.1 pg (27.0-31.0); Mean Corpuscular Volume 91.3 fL (78.0-98.0); Mean Platelet Volume 9.7 fL (7.4-10.4); Platelet Count 282 10x3/uL (130-400); RBC Distribution Width 17.3 % (11.5-14.5); Red Blood Cell (RBC) Count 3.35 mill/uL (4.70-6.10)
[2024-08-16 03:51] LABS: ALT (SGPT) 19 U/L (8-55); AST (SGOT) 27 U/L (5-34); Albumin 1.9 g/dL (3.4-4.8); Alkaline Phosphatase 121 U/L (40-110); Anion Gap 10 mmol/L (10-20); BUN (Urea Nitrogen) 28 mg/dL (8.4-25.7); Bilirubin, Total 0.9 mg/dL (0.2-1.2); Calc. Creatinine Clearance 110 mL/min (70-130); Calcium 7.9 mg/dL (7.8-10.44); Carbon Dioxide 27 mmol/L (23-31); Chloride 103 mmol/L (98-107); Estimated GFR 97; Globulin 4.5 g/dL (2.4-3.5); Glucose 139 mg/dL (80-115); Potassium 3.7 mmol/L (3.5-5.1); Protein, Total 6.4 g/dL (5.8-8.1); Sodium 136 mmol/L (136-145)
[2024-08-16] MEDS: Ibuprofen 200 MG TAB PO SCH (10:04)
[2024-08-16] MEDS: Bumetanide 1 MG TAB PO SCH (20:12)
[2024-08-17 04:10] LABS: Anion Gap 13 mmol/L (10-20); BUN (Urea Nitrogen) 25 mg/dL (8.4-25.7); Calc. Creatinine Clearance 115 mL/min (70-130); Calcium 7.9 mg/dL (7.8-10.44); Carbon Dioxide 25 mmol/L (23-31); Chloride 107 mmol/L (98-107); Estimated GFR 97; Glucose 159 mg/dL (80-115); Potassium 3.9 mmol/L (3.5-5.1); Sodium 141 mmol/L (136-145)
[2024-08-17 04:19] LABS: #Basophils 0.04 10x3/uL (0.0-0.2); %Basophils 0.4 % (0.0-1.0); %Eosinophils 8.5 % (0.0-10.0); %Lymphocytes 12.2 % (21.0-51.0); %Monocytes 8.8 % (0.0-10.0); %Neutrophils 69.6 % (42.0-75.0); Hematocrit 30.5 % (42.0-52.0); Hemoglobin 9.3 g/dL (14.0-18.0); Mean Corpuscular HGB CONC 30.5 g/dL (32.0-36.0); Mean Corpuscular Hemoglobin 28.3 pg (27.0-31.0); Mean Corpuscular Volume 92.7 fL (78.0-98.0); Mean Platelet Volume 9.6 fL (7.4-10.4); Platelet Count 308 10x3/uL (130-400); RBC Distribution Width 17.4 % (11.5-14.5); Red Blood Cell (RBC) Count 3.29 mill/uL (4.70-6.10)
[2024-08-17 12:38] VITALS: BMI 30.7
[2024-08-17] MEDS: Pantoprazole DR 40 MG TAB PO SCH (20:40)
[2024-08-19 13:53] VITALS: BP 133/69
[2024-08-19 16:02] VITALS: TEMP 97.6
== END 2024-08-19 17:11 | DRG 481 ==
LOC: ERS 20:30 → IMCU/EMU 21:32 → UNDOADMIN 08-13 00:08 → IMCU/EMU 08-13 00:08
PROVIDERS: ADMIT Specialist; ATTEND Internal Medicine
PROC: 30233N1 Transfusion of Nonautologous Red Blood Cells into Peripheral Vein, Percutaneous Approach (ICD-10-PCS; 2024-08-12)
PROC: 0QS704Z Reposition Left Upper Femur with Internal Fixation Device, Open Approach (ICD-10-PCS; principal; 2024-08-14)
DX: S72.142A Displaced intertrochanteric fracture of left femur, initial encounter for closed fracture (principal); I42.9 Cardiomyopathy, unspecified; I25.10 Atherosclerotic heart disease of native coronary artery without angina pectoris; F17.210 Nicotine dependence, cigarettes, uncomplicated; I95.1 Orthostatic hypotension; I10 Essential (primary) hypertension; W19.XXXA Unspecified fall, initial encounter; E03.9 Hypothyroidism, unspecified; D64.89 Other specified anemias; E11.9 Type 2 diabetes mellitus without complications; F10.10 Alcohol abuse, uncomplicated; I25.2 Old myocardial infarction; Z95.5 Presence of coronary angioplasty implant and graft; Z79.899 Other long term (current) drug therapy; Z88.0 Allergy status to penicillin; Z79.84 Long term (current) use of oral hypoglycemic drugs; Z95.2 Presence of prosthetic heart valve; Z95.1 Presence of aortocoronary bypass graft; Z79.4 Long term (current) use of insulin; Z79.01 Long term (current) use of anticoagulants
CPT/HCPCS: 36415; 36416; 36430; 71045; 71260; 72170; 74177; 80048; 80053; 82306; 85025; 85610; 85730; 86850; 86900; 86901; 93005; 93306; 93970; 94760; 96374; 96375; C1713; G0390; J1815; J1885; J2272; J2405; J2470; J2704; J3490; J7120; J7999; P9016; Q9967

== ENCOUNTER 2024-11-18 13:28 | Emergency (ER) | payer MEDICARE, OTHER | END 2024-11-18 15:55 | disposition home or self-care (01) | LOC: ERS 13:28 | DX: S82.041A Displaced comminuted fracture of right patella, initial encounter for closed fracture (principal); E11.9 Type 2 diabetes mellitus without complications; W01.0XXA Fall on same level from slipping, tripping and stumbling without subsequent striking against object, initial encounter; Y93.01 Activity, walking, marching and hiking | CPT/HCPCS: 99283 ==

== ENCOUNTER 2025-07-25 10:39 | Outpatient (CLI) | payer MEDICARE ==
[2025-07-25 11:40] LABS: #Basophils 0.10 10x3/uL (0.0-0.2); #Eosinophils 0.98 10x3/uL (0.0-0.7); #Monocytes 0.93 10x3/uL (0.11-0.59); #Neutrophils 6.72 10x3/uL (1.40-6.50); %Basophils 0.9 % (0.0-1.0); %Eosinophils 8.7 % (0.0-10.0); %Lymphocytes 22.0 % (21.0-51.0); %Monocytes 8.3 % (0.0-10.0); %Neutrophils 59.7 % (42.0-75.0); Hematocrit 38.4 % (42.0-52.0); Hemoglobin 12.4 g/dL (14.0-18.0); Mean Corpuscular Hemoglobin 28.8 pg (27.0-31.0); Mean Corpuscular Volume 89.3 fL (78.0-98.0); Platelet Count 274 10x3/uL (130-400); Red Blood Cell (RBC) Count 4.30 mill/uL (4.70-6.10); White Blood Cell (WBC) Count 11.24 10x3/uL (4.8-10.8)
[2025-07-25 11:56] LABS: Anion Gap 13 mmol/L (10-20); BUN (Urea Nitrogen) 19 mg/dL (8.4-25.7); Calc. Creatinine Clearance 0 mL/min (70-130); Calcium 8.8 mg/dL (7.8-10.44); Carbon Dioxide 25 mmol/L (23-31); Chloride 102 mmol/L (98-107); Glucose 120 mg/dL (80-115); Potassium 4.6 mmol/L (3.5-5.1); Sodium 135 mmol/L (136-145)
== END 2025-07-25 10:40 | disposition home or self-care (01) ==
LOC: LABBT 10:39
PROVIDERS: ATTEND Thoracic Surgery (Cardiothoracic Vascular Surgery)
DX: Z01.818 Encounter for other preprocedural examination (principal); I70.212 Atherosclerosis of native arteries of extremities with intermittent claudication, left leg
CPT/HCPCS: 80048; 85025; 93005; 93010

== ENCOUNTER 2025-08-23 09:08 | Inpatient (IN) | payer MEDICARE ==
[2025-08-23 11:37] LABS: #Basophils 0.10 10x3/uL (0.0-0.2); #Eosinophils 0.46 10x3/uL (0.0-0.7); #Monocytes 1.38 10x3/uL (0.11-0.59); #Neutrophils 13.15 10x3/uL (1.40-6.50); %Basophils 0.6 % (0.0-1.0); %Eosinophils 2.7 % (0.0-10.0); %Lymphocytes 10.7 % (21.0-51.0); %Monocytes 8.1 % (0.0-10.0); %Neutrophils 76.7 % (42.0-75.0); Hematocrit 34.8 % (42.0-52.0); Hemoglobin 11.2 g/dL (14.0-18.0); Mean Corpuscular Hemoglobin 28.2 pg (27.0-31.0); Mean Corpuscular Volume 87.7 fL (78.0-98.0); Platelet Count 357 10x3/uL (130-400); Red Blood Cell (RBC) Count 3.97 mill/uL (4.70-6.10); White Blood Cell (WBC) Count 17.14 10x3/uL (4.8-10.8)
[2025-08-23 11:55] LABS: Anion Gap 16 mmol/L (10-20); BUN (Urea Nitrogen) 16 mg/dL (8.4-25.7); Calc. Creatinine Clearance 0 mL/min (70-130); Calcium 8.9 mg/dL (7.8-10.44); Carbon Dioxide 23 mmol/L (23-31); Chloride 99 mmol/L (98-107); Glucose 160 mg/dL (80-115); Potassium 4.4 mmol/L (3.5-5.1); Sodium 134 mmol/L (136-145)
[2025-08-23] MEDS ORDERED: Heparin 5,000 UNITS/ML VIAL ONE (12:26)
[2025-08-23] MEDS ORDERED: CEFAZOLIN 2 GM VIAL ONE (12:43)
[2025-08-23] MEDS ORDERED: PROPOFOL 20 ML ONE (12:50)
[2025-08-23] MEDS ORDERED: fentaNYL PF 100 MCG/2 ML SYRINGE ONE (12:50)
[2025-08-23] MEDS ORDERED: Ondansetron PF 4 MG/2 ML Vial ONE (13:02)
[2025-08-23] MEDS ORDERED: Lidocaine 1% PF 5 ML VIAL ONE (13:02)
[2025-08-23] MEDS ORDERED: PHENYLEPHRINE-NS 100 MCG/ML 10 ML SYRINGE ONE (13:11)
[2025-08-23] MEDS ORDERED: Ondansetron PF 4 MG/2 ML Vial IVP PRN (13:48)
[2025-08-23] MEDS ORDERED: Vancomycin 1.5 GRAM/300 ML BAG IVPB SCH ×2 (13:48→21:00)
[2025-08-23] MEDS ORDERED: LevoFLOXacin D5W 500 mg (100 mL) BAG ONE (14:09)
[2025-08-23] MEDS: LevoFLOXacin 500 mg/D5W 500 MG in Premix 1 BAG IVPB SCH (14:22)
[2025-08-23] MEDS: Torsemide 20 MG TAB PO SCH (16:57)
[2025-08-23 17:58] VITALS: BMI 29.0
[2025-08-23] MEDS: VANCOMYCIN 2 GRAM/400 ML Premix BAG IVPB SCH (20:20)
[2025-08-23] MEDS: Pentoxifylline 400 MG ER.TAB PO SCH (22:00)
[2025-08-24 05:25] LABS: #Basophils 0.10 10x3/uL (0.0-0.2); #Eosinophils 0.73 10x3/uL (0.0-0.7); #Monocytes 0.98 10x3/uL (0.11-0.59); #Neutrophils 9.01 10x3/uL (1.40-6.50); %Basophils 0.8 % (0.0-1.0); %Eosinophils 5.6 % (0.0-10.0); %Lymphocytes 14.7 % (21.0-51.0); %Monocytes 7.5 % (0.0-10.0); %Neutrophils 69.2 % (42.0-75.0); Hematocrit 31.6 % (42.0-52.0); Hemoglobin 10.1 g/dL (14.0-18.0); Mean Corpuscular Hemoglobin 28.3 pg (27.0-31.0); Mean Corpuscular Volume 88.5 fL (78.0-98.0); Platelet Count 331 10x3/uL (130-400); Red Blood Cell (RBC) Count 3.57 mill/uL (4.70-6.10); White Blood Cell (WBC) Count 13.02 10x3/uL (4.8-10.8)
[2025-08-24 05:37] LABS: Anion Gap 14 mmol/L (10-20); BUN (Urea Nitrogen) 13 mg/dL (8.4-25.7); Calc. Creatinine Clearance 113 mL/min (70-130); Calcium 8.8 mg/dL (7.8-10.44); Carbon Dioxide 25 mmol/L (23-31); Chloride 100 mmol/L (98-107); Glucose 166 mg/dL (80-115); Potassium 4.3 mmol/L (3.5-5.1); Sodium 135 mmol/L (136-145)
[2025-08-24] MEDS: Vancomycin 1.25 GM / NS 250 ML VIAL-2-BAG IVPB SCH (05:37)
[2025-08-24 05:39] LABS: Vancomycin, Random 14.8 ug/mL (See Comment)
[2025-08-24] MEDS: Pantoprazole 40 MG DR.TAB PO SCH (09:51)
[2025-08-24] MEDS: Spironolactone 25 MG TAB PO SCH (09:52)
[2025-08-24 12:15] VITALS: BMI 29.0
[2025-08-24] MEDS: LevoFLOXacin 500 mg/D5W 500 MG in Premix 1 BAG IVPB SCH (14:31)
[2025-08-24] MEDS: Vancomycin 1 GM Premix Bag IVPB SCH (18:13)
[2025-08-25] MEDS: Acetaminophen 325 MG TAB PO PRN (01:23)
[2025-08-25 05:38] LABS: #Basophils 0.09 10x3/uL (0.0-0.2); #Eosinophils 0.74 10x3/uL (0.0-0.7); #Monocytes 0.94 10x3/uL (0.11-0.59); #Neutrophils 7.07 10x3/uL (1.40-6.50); %Basophils 0.8 % (0.0-1.0); %Eosinophils 6.6 % (0.0-10.0); %Lymphocytes 17.9 % (21.0-51.0); %Monocytes 8.4 % (0.0-10.0); %Neutrophils 63.3 % (42.0-75.0); Hematocrit 32.1 % (42.0-52.0); Hemoglobin 9.9 g/dL (14.0-18.0); Mean Corpuscular Hemoglobin 27.5 pg (27.0-31.0); Mean Corpuscular Volume 89.2 fL (78.0-98.0); Platelet Count 356 10x3/uL (130-400); Red Blood Cell (RBC) Count 3.60 mill/uL (4.70-6.10); White Blood Cell (WBC) Count 11.18 10x3/uL (4.8-10.8)
[2025-08-25 05:55] LABS: Anion Gap 16 mmol/L (10-20); BUN (Urea Nitrogen) 19 mg/dL (8.4-25.7); Calc. Creatinine Clearance 88 mL/min (70-130); Calcium 8.8 mg/dL (7.8-10.44); Carbon Dioxide 28 mmol/L (23-31); Chloride 94 mmol/L (98-107); Glucose 209 mg/dL (80-115); Potassium 3.6 mmol/L (3.5-5.1); Sodium 134 mmol/L (136-145)
[2025-08-25] MEDS: BuPROPion XL 150 MG ER.TAB PO SCH (08:53)
[2025-08-25] MEDS ORDERED: Glucagon 1 MG/ML KIT IM PRN (11:15)
[2025-08-25] MEDS ORDERED: Dextrose 50% Abboject 50 ML SYRINGE SLOW IVP PRN (11:15)
[2025-08-25] MEDS ORDERED: Lidocaine 4% Topical Sol 50 ML BOT TOP PRN (11:41)
[2025-08-25] MEDS: Pentoxifylline 400 MG ER.TAB PO SCH (21:37)
[2025-08-26 04:59] LABS: #Basophils 0.09 10x3/uL (0.0-0.2); #Eosinophils 0.68 10x3/uL (0.0-0.7); #Monocytes 1.00 10x3/uL (0.11-0.59); #Neutrophils 6.49 10x3/uL (1.40-6.50); %Basophils 0.9 % (0.0-1.0); %Eosinophils 6.5 % (0.0-10.0); %Lymphocytes 18.1 % (21.0-51.0); %Monocytes 9.6 % (0.0-10.0); %Neutrophils 61.9 % (42.0-75.0); Hematocrit 33.2 % (42.0-52.0); Hemoglobin 10.6 g/dL (14.0-18.0); Mean Corpuscular Hemoglobin 28.0 pg (27.0-31.0); Mean Corpuscular Volume 87.6 fL (78.0-98.0); Platelet Count 370 10x3/uL (130-400); Red Blood Cell (RBC) Count 3.79 mill/uL (4.70-6.10); White Blood Cell (WBC) Count 10.47 10x3/uL (4.8-10.8)
[2025-08-26 05:24] LABS: Vancomycin, Random 17.0 ug/mL (See Comment)
[2025-08-26 05:39] LABS: Calc. Creatinine Clearance 86.0 mL/min (70-130)
[2025-08-26] MEDS ORDERED: Insulin Glargine 30 UNITS/0.3 ML VIAL SC SCH (09:00)
[2025-08-26] MEDS: FLU (Fluad Triv) 25-26 (65UP)PF 45 MCG/0.5 ML Syringe IM ONE (09:16)
[2025-08-26] MEDS: Insulin Glargine 30 UNITS/0.3 ML VIAL SC SCH (09:16)
[2025-08-26] MEDS: PNEUMOC 20-VAL CONJ-DIP CRM/PF 0.5 ML SYRINGE IM ONE (09:25)
[2025-08-27 05:23] LABS: #Basophils 0.09 10x3/uL (0.0-0.2); #Eosinophils 1.02 10x3/uL (0.0-0.7); #Monocytes 0.92 10x3/uL (0.11-0.59); #Neutrophils 7.62 10x3/uL (1.40-6.50); %Basophils 0.7 % (0.0-1.0); %Eosinophils 8.3 % (0.0-10.0); %Lymphocytes 19.0 % (21.0-51.0); %Monocytes 7.5 % (0.0-10.0); %Neutrophils 62.1 % (42.0-75.0); Hematocrit 32.4 % (42.0-52.0); Hemoglobin 10.1 g/dL (14.0-18.0); Mean Corpuscular Hemoglobin 28.1 pg (27.0-31.0); Mean Corpuscular Volume 90.0 fL (78.0-98.0); Platelet Count 391 10x3/uL (130-400); Red Blood Cell (RBC) Count 3.60 mill/uL (4.70-6.10); White Blood Cell (WBC) Count 12.29 10x3/uL (4.8-10.8)
[2025-08-27] MEDS: VANCOMYCIN 1.75 GM/350 ML BAG 1.75 GM in Premix 1 BAG IVPB SCH (06:25)
[2025-08-28] MEDS: diphenhydrAMINE 25 MG CAP PO PRN (00:17)
[2025-08-28 06:02] LABS: Vancomycin, Random 16.8 ug/mL (See Comment)
[2025-08-29 05:14] LABS: #Basophils 0.09 10x3/uL (0.0-0.2); #Eosinophils 1.23 10x3/uL (0.0-0.7); #Monocytes 0.94 10x3/uL (0.11-0.59); #Neutrophils 6.13 10x3/uL (1.40-6.50); %Basophils 0.8 % (0.0-1.0); %Eosinophils 11.1 % (0.0-10.0); %Lymphocytes 21.3 % (21.0-51.0); %Monocytes 8.5 % (0.0-10.0); %Neutrophils 55.5 % (42.0-75.0); Hematocrit 32.6 % (42.0-52.0); Hemoglobin 10.2 g/dL (14.0-18.0); Mean Corpuscular Hemoglobin 28.0 pg (27.0-31.0); Mean Corpuscular Volume 89.6 fL (78.0-98.0); Platelet Count 390 10x3/uL (130-400); Red Blood Cell (RBC) Count 3.64 mill/uL (4.70-6.10); White Blood Cell (WBC) Count 11.06 10x3/uL (4.8-10.8)
[2025-08-29] MEDS: Clindamycin 150 MG CAP PO SCH (11:34)
[2025-08-29 12:57] VITALS: BP 128/83; TEMP 98.1
== END 2025-08-29 14:20 | disposition home or self-care (01) | DRG 920 ==
LOC: ERS 09:08 → SDC 10:56 → SURG A 14:47
PROVIDERS: ADMIT Thoracic Surgery (Cardiothoracic Vascular Surgery); ATTEND Thoracic Surgery (Cardiothoracic Vascular Surgery)
PROC: 3E03329 Introduction of Other Anti-infective into Peripheral Vein, Percutaneous Approach (ICD-10-PCS; principal; 2025-08-23)
PROC: 0HB8XZZ Excision of Buttock Skin, External Approach (ICD-10-PCS; 2025-08-23)
PROC: 0H98XZZ Drainage of Buttock Skin, External Approach (ICD-10-PCS; 2025-08-23)
PROC: 3E0234Z Introduction of Serum, Toxoid and Vaccine into Muscle, Percutaneous Approach (ICD-10-PCS; 2025-08-26)
PROC: 3E02340 Introduction of Influenza Vaccine into Muscle, Percutaneous Approach (ICD-10-PCS; 2025-08-26)
DX: I97.648 Postprocedural seroma of a circulatory system organ or structure following other circulatory system procedure (principal); L02.214 Cutaneous abscess of groin; N10 Acute pyelonephritis; L03.314 Cellulitis of groin; K74.60 Unspecified cirrhosis of liver; N40.0 Benign prostatic hyperplasia without lower urinary tract symptoms; F32.A Depression, unspecified; M19.90 Unspecified osteoarthritis, unspecified site; I73.9 Peripheral vascular disease, unspecified; E11.51 Type 2 diabetes mellitus with diabetic peripheral angiopathy without gangrene; E03.9 Hypothyroidism, unspecified; Z23 Encounter for immunization; I25.2 Old myocardial infarction; Z95.5 Presence of coronary angioplasty implant and graft; Z89.412 Acquired absence of left great toe; Z95.1 Presence of aortocoronary bypass graft; Z95.3 Presence of xenogenic heart valve; Z98.890 Other specified postprocedural states; Z90.49 Acquired absence of other specified parts of digestive tract; Z87.891 Personal history of nicotine dependence; Z91.041 Radiographic dye allergy status; Z88.0 Allergy status to penicillin; Z79.899 Other long term (current) drug therapy; Z79.01 Long term (current) use of anticoagulants; Z79.84 Long term (current) use of oral hypoglycemic drugs; Z79.82 Long term (current) use of aspirin; Z79.4 Long term (current) use of insulin; Z89.422 Acquired absence of other left toe(s); Y83.8 Other surgical procedures as the cause of abnormal reaction of the patient, or of later complication, without mention of misadventure at the time of the procedure
CPT/HCPCS: 36415; 36416; 80048; 80202; 82565; 85025; 86141; 87070; 87077; 87081; 87205; 93005; 93010; 97139; 99284; J0169; J0665; J0690; J1644; J1815; J1956; J2405; J2704; J3010; J3373; J3375; J7030; J7050